=== PATIENT | female | born 1965 | race Caucasian/White ===

== ENCOUNTER 2020-05-25 06:00 | Outpatient (RCR) | payer MEDICARE, MEDICAID, SELFPAY | END 2020-06-11 23:59 | disposition home or self-care (01) | LOC: MPT 06:00 | PROVIDERS: Referring Provider Nurse Practitioner Family; Visit Provider Nurse Practitioner Family | DX: M42.16 Adult osteochondrosis of spine, lumbar region (principal); M25.551 Pain in right hip | CPT/HCPCS: 97140; 97161; 97530 ==

== ENCOUNTER 2020-06-10 14:21 | Emergency (ER) | payer MEDICARE, MEDICAID, SELFPAY ==
--- NOTE | 2020-06-10 14:52 | XRR_ITS ---
PROCEDURE INFORMATION: Exam: XR Right Hip with Pelvis when Performed Exam date and time: 06/10/2020 2:53 PM Age: 55 years old Clinical indication: Hip pain; Right hip; Additional info: RT hip pain TECHNIQUE: Imaging protocol: XR Right hip with pelvis when performed. Views: 2 or 3 views. COMPARISON: No relevant prior studies available. FINDINGS: Bones/joints: Unremarkable. No acute fracture. Soft tissues: Unremarkable. XR/XR hip RT 2-3V wo/w pel* [id number] IMPRESSION: No acute findings.
[2020-06-10 15:08] VITALS: BP 165/88; PULSE 83; RESP 18; TEMP 36.6; O2SAT 98; BMI 44.2
[2020-06-10] MEDS: HYDROcodone-acetaminophen 5-325 mg Tablet 1 TAB PO (17:27)
[2020-06-10 17:43] VITALS: BP 145/68; PULSE 82; RESP 16; O2SAT 97
--- NOTE | 2020-06-11 15:48 | W.ED.EXTPRO ---
HPI - Extremity Problem General: Chief complaint: Extremity Problem,Nontraumatic Stated complaint: R HIP PAIN Time Seen by Provider: 06/10/20 16:18 Source: patient Mode of arrival: ambulatory Limitations: no limitations History of Present Illness: HPI Narrative: 55-year-old female patient presents to the emergency department with chronic rt hip/buttock pain, recently started gabapentin, initiated physical therapy due to hip pain. She denies fall or trauma. Has been seen on several occasions by her primary care provider in [place]. Recently moved to the area, does not have a primary care here in [place]. Her spouse is present with her and is able to assist with history of present illness. She has not had anything for pain including Tylenol or ibuprofen. She denies weakness of the right lower extremity. Denies bowel or bladder incontinence. She reports pain has not changed, she has not experienced injury or worsening symptoms. MD Complaint: extremity pain Onset (ago): month(s) (6) Pain Consistency: intermittent Location: right and lower extremity Quality: aching and dull Radiation: distal Relieving factors: rest Exacerbating factors: weight bearing and walking Associated symptoms: Reports no associated symptoms; Deny chest pain, fever(s) or rash Review of Systems General: Reports: 10 or more systems reviewed and unremarkable except in HPI and below Const: Denies: fever(s), chills or diaphoresis Eyes: Denies: blurry vision or eye redness ENMT: Denies: throat pain, dental pain or disequilibrium Card: Denies: chest pain, palpitations or irregular heart rhythm Resp: Denies: dyspnea, productive cough, non-productive cough or wheezing GI: Denies: abdominal pain, nausea or vomiting : Denies: difficulty voiding or dysuria Musc: Reports: extremity pain (Right buttock radiating to the right lower extremity); Denies: neck pain, back pain or joint swelling Skin/Breast: Denies: rash or pruritus Neuro: Denies: headache(s), weakness in extremities or behavioral changes Psych: Denies: anxiety, depression or irritability Yahir/Lymph: Denies: easy bruising Physical Exam Const: COMMON NORMALS: no acute distress, patient oriented x3, healthy appearing, alert and well nourished EXAM LIMITATIONS: no altered mental status and no physical limitations GENERAL APPEARANCE: cooperative, comfortable and well hydrated NUTRITIONAL APPEARANCE: obese ORIENTATION/CONSCIOUSNESS: Yes awake, Yes oriented to person, Yes oriented to place and Yes oriented to time HENMT: COMMON NORMALS: normocephalic, atraumatic, Normal external nose present and moist oral mucous membranes HEAD & SCALP: normal to inspection, normocephalic and atraumatic FACE & SINUS: normal facial exam and face symmetric NOSE: Normal external nose present MOUTH: Normal oral and palatal mucosa present, lip normal and tongue normal THROAT: posterior oropharynx normal Eye: COMMON NORMALS: Equal, round and reactive pupils present and EOMs intact bilaterally GENERAL EYE: appearance normal, both eyes and all related structures PUPIL: Yes Equal, round and reactive pupils present Neck/C-Spine: COMMON NORMALS: full ROM and no lymphadenopathy GENERAL: Yes normal visual inspection and Yes trachea midline CERVICAL SPINE: Yes cervical ROM normal, No pain with cervical ROM, No Cervical spine tenderness, No Paracervical muscle tenderness and No Paracervical spasm Lymph: LYMPHATIC: no lymphadenopathy noted Chest: COMMONS NORMALS: normal inspection of the chest Resp: COMMON NORMALS: normal respiratory effort, No retractions, No use of accessory muscles and clear to auscultation bilaterally EFFORT & INSPECTION: Yes able to speak in complete sentences and No audible wheezes AUSCULTATION: clear to auscultation bilaterally and no wheezes Cardio: COMMON NORMALS: regular rate, regular rhythm, S1 normal heart sound present, S2 normal heart sound present and Peripheral pulses 2+ throughout RATE: regular rate RHYTHM: regular rhythm HEART SOUNDS: S1 normal heart sound present and S2 normal heart sound present PERIPHERAL PULSES: Peripheral pulses 2+ throughout GI: COMMON NORMALS: Normal to inspection, nondistended, normoactive bowel sounds present, Soft to palpation and non-tender INSPECTION: Yes normal to inspection and Yes central obesity PALPATION: Yes Soft to palpation, No Firmness to palpation present (GI), No Tenderness to palpation present (GI) and No Rigid due to palpation : COMMON NORMALS: Yes no CVA tenderness BLADDER/KIDNEY EXAM: Yes no CVA tenderness Back/Pelvis: COMMON NORMALS: no CVA tenderness, thoracic and lumbar spine normal to inspection, no thoracic nor lumbar tenderness and thoraco-lumbar ROM normal LUMBAR SPINE/LOWER BACK: Yes normal to inspection, No paraspinal muscle tenderness, No paraspinal muscle spasm, No Lumbar scoliosis and Yes straight leg raise positive right PELVIS: Yes buttocks normal SACROILIAC JOINTS: Yes SI joint(s) abnormal SI joint details: tender to palpation (Right) SACRUM: no ecchymosis Extremity: COMMON NORMALS: normal to inspection, capillary refill normal, no clubbing, cyanosis or edema, no calf tenderness and no pedal edema GENERAL: Yes normal exam except as noted Neuro: COMMON NORMALS: patient oriented x3 and no focal motor deficits SENSORIUM/ORIENTATION: Yes alert, Yes oriented to person, Yes oriented to place and Yes oriented to time SPEECH: speech normal GAIT: Yes Normal gait present MOTOR EXAM: 5/5 motor strength present throughout DEEP TENDON REFLEXES: Right ankle reflex intensity grade: 2+ and Left ankle reflex intensity grade: 2+ Psych: COMMON NORMALS: mental status grossly normal, Normal thought process present, cooperative, normal affect, speech normal and activity/motor behavior normal ACTIVITY/MOTOR BEHAVIOR: Yes appropriate eye contact SPEECH: Yes normal speech THOUGHT PROCESS: Normal thought process present Skin: COMMON NORMALS: no rashes or lesions noted, no wounds, turgor normal, no petechiae and no mottling GENERAL SKIN EXAM: no rashes or lesions noted, elasticity normal and turgor normal Course Vital Signs: Vital signs: Vital Signs Temperature 97.8 F 06/10/20 15:08 Pulse Rate 82 06/10/20 17:43 Respiratory Rate 16 06/10/20 17:43 Blood Pressure 145/68 06/10/20 17:43 Pulse Oximetry 97 06/10/20 17:43 MDM - Extremity (Nontraumatic) Differential Diagnosis: Extremity Problem Differential Diagnosis: Likely superficial thrombophlebitis, lower extremity edema and deep vein thrombosis of lower extremity Discharge Plan Discharge Patient Disposition: Home Clinical Impression: Sciatic leg pain, Sciatica of right side Condition: Stable Prescriptions: New prednisone 20 mg tablet 20 mg PO DAILY Qty: 10 RF: 0 Lidoderm 5 % adhesive patch,medicated 1 patch topical BID PRN (Reason: back pain) Qty: 30 RF: 0 Discharge Orders: Discharge ED (Routine); Ordered 06/10/20 Ordered By: Tanja Kwon Discharge Diet: Usual diet Discharge Activity: Limit activity as instructed Patient Instructions: Sciatica (ED), Opioid Safety Activity Restrictions/Additional Instructions: apply warm moist heat/alternate with cool compresses to the affected area take prednisone with food as directed Take Tylenol, 2 tablets of 500 mg, three times daily as needed for pain patient financial services coordinator will be contacting you with a follow-up appointment at the primary care provider, please follow-up for sciatic pain as further testing may be warranted Continue with physical therapy as directed Return to emergency department for other concerning symptoms such as worsening pain, right lower leg weakness or other symptoms Coding Level of Care Code ED C[employer] Printer for Elliott Brizuela
--- NOTE | 2020-06-12 14:05 | DCPLANNER ---
data operations manager had message to speak with patient about getting established with a primary care physician. data operations manager called phone number [phone], unable to speak with patient at this time, a voicemail was left for patient to return case coordinator phone call.
--- NOTE | 2020-06-15 14:09 | DCPLANNER ---
Patients brother called case specialist back, stating that patient needed to be established with a primary care provider, and he would like patient to be seen at the clinic in [facility]. fast food manager called the [facility] clinic in [facility], a follow up appointment was scheduled for , June 22, 2020 at 10:[address] Charissa Reilly. fast food manager called patients brother at phone number [phone], unable to speak with Stefan, a voicemail was left for patient to return manager of case phone call.
--- NOTE | 2020-06-29 15:53 | DCPLANNER ---
Patient had follow up appointment scheduled with leatha esquivel for pcp - patient did attend appointment.
== END 2020-06-10 17:45 | disposition home or self-care (01) ==
PROVIDERS: Emergency Provider Nurse Practitioner Family
DX: M54.31 Sciatica, right side (principal)
CPT/HCPCS: 73502; 99282

== ENCOUNTER 2020-06-12 06:00 | Outpatient (RCR) | payer MEDICARE, MEDICAID, SELFPAY | END 2020-07-12 23:59 | disposition home or self-care (01) | LOC: MPT 06:00 | PROVIDERS: Referring Provider Nurse Practitioner Family; Visit Provider Nurse Practitioner Family | DX: M42.16 Adult osteochondrosis of spine, lumbar region (principal); M25.551 Pain in right hip | CPT/HCPCS: 97110; 97140 ==

== ENCOUNTER → 2020-06-22 11:39 | Outpatient (BNVA) | payer MEDICARE, MEDICAID, SELFPAY | PROVIDERS: PCP Family Medicine; Visit Provider Family Medicine | DX: E78.5 Hyperlipidemia, unspecified (principal); K21.9 Gastro-esophageal reflux disease without esophagitis; E87.6 Hypokalemia; F33.1 Major depressive disorder, recurrent, moderate; R73.03 Prediabetes; F32.9 Major depressive disorder, single episode, unspecified; M54.5 Low back pain; Z76.89 Persons encountering health services in other specified circumstances | CPT/HCPCS: 80053; 80061; 83036 ==

== ENCOUNTER 2020-07-13 06:00 | Outpatient (RCR) | payer MEDICARE, MEDICAID, SELFPAY | END 2020-08-11 23:59 | disposition home or self-care (01) | LOC: MPT 06:00 | PROVIDERS: PCP Family Medicine; Referring Provider Nurse Practitioner Family; Visit Provider Nurse Practitioner Family | DX: M42.16 Adult osteochondrosis of spine, lumbar region (principal); M25.551 Pain in right hip | CPT/HCPCS: 97110; 97116; 97140 ==

== ENCOUNTER → 2020-10-02 10:55 | Outpatient (BNVA) | payer MEDICARE, MEDICAID, SELFPAY | PROVIDERS: PCP Family Medicine; Visit Provider Family Medicine | DX: E87.6 Hypokalemia (principal); I10 Essential (primary) hypertension; E78.5 Hyperlipidemia, unspecified | CPT/HCPCS: 80048 ==

== ENCOUNTER 2020-10-06 12:31 | Outpatient (CLI) | payer MEDICARE, MEDICAID, SELFPAY ==
--- NOTE | 2020-10-06 12:36 | XR_ITS ---
WS: [id number] Lumbar spine, 3 views, 10/06/2020 Clinical Data: M54.5 - Low back pain Comparison: None. Findings: No compression fractures or subluxation is seen. There is degenerative disc narrowing at L4-L5 and L5 -S1. There is anterior osteoarthritic change at L3-L5. The transverse processes and SI joints are nor mal. There is a minimal dextroscoliosis. There are clips in the right upper quadrant from a cholecystectom y. XR/XR lumbar spine 2-3V* [id number] Impression: 1. Osteoarthritis of the vertebral bodies L3-L5. 2. Degenerative disc narrowing at L4-L5 and L5-S1.
== END 2020-10-06 12:32 | disposition home or self-care (01) ==
PROVIDERS: Visit Provider Family Medicine
DX: M54.5 Low back pain (principal); M47.816 Spondylosis without myelopathy or radiculopathy, lumbar region
CPT/HCPCS: 72100

== ENCOUNTER 2020-12-15 06:22 | Outpatient (CLI) | payer MEDICARE, MEDICAID, SELFPAY ==
--- NOTE | 2020-12-15 07:15 | MR_ITS ---
WS: [id number] MRI LUMBAR SPINE NONCONTRAST HISTORY: M54.5 - Low back pain COMPARISON: Radiographs 10/06/2020 TECHNIQUE: Sagittal and axial multisequence imaging is submitted. Mild thoracolumbar scoliosis. Straightening of the normal lumbar lordosis. Posterior alignment is normal. No marrow edema or fracture. Mild disc space narrowing and desiccation throughout but most significant at L4-5. Conus terminates normally at L1-2 disc level. L1-L2: Mild narrowing of the LEFT foramen without significant stenosis. Mild facet arthritis. L2-L3: Mild annular disc bulging with a RIGHT foraminal disc protrusion slightly contacts the exiting L2 nerve root. Moderate facet joint arthritis and ligamentum flavum hypertrophy encroaching into the thecal sac causing mild bilateral subarticular recess stenosis. L3-L4: Mild annular disc bulging with moderate to severe ligamentum flavum hypertrophy and facet arth ritis. Moderate central and bilateral foraminal stenosis. Mild deformity of the traversing L4 nerve r oot on the LEFT. Small amount of fluid in the facet joints bilaterally. L4-L5: Moderate annular disc bulging with moderate ligamentum flavum hypertrophy and facet arthritis. No disc protrusions appreciated. Moderate central and foraminal stenosis. Moderate to severe subarti cular recess stenosis. L5-S1: Diffuse annular disc bulging with moderate ligamentum flavum hypertrophy and facet arthritis. Disc and facet arthritis encroaching moderately upon the LEFT S1 nerve root. Moderate bilateral rich inal stenosis. Paravertebral soft tissues are normal. MR/MR lumbar spine wo con* [id number] IMPRESSION: 1. Moderate central and bilateral foraminal stenosis with moderate to severe b ilateral subarticular recess stenosis at L4-5. 2. Moderate bilateral foraminal stenosis at L5-S1 with more significant encro achment upon the LEFT S1 nerve root. 3. Mild central and bilateral subarticular recess stenosis at L2-3. RIGHT fora les disc protrusion with mild contact on the exiting L2 nerve root. 4. Moderate central and bilateral foraminal stenosis at L3-4. Slightly greater encroachment upon the LEFT traversing L4 nerve root.
== END 2020-12-15 06:23 | disposition home or self-care (01) ==
LOC: RADSHAW 06:29
PROVIDERS: PCP Family Medicine; Visit Provider Family Medicine
DX: M54.5 Low back pain (principal); M48.061 Spinal stenosis, lumbar region without neurogenic claudication; M48.07 Spinal stenosis, lumbosacral region
CPT/HCPCS: 72148

== ENCOUNTER → 2021-04-16 14:31 | Outpatient (BNVA) | payer MEDICARE, MEDICAID, SELFPAY | PROVIDERS: PCP Family Medicine; Visit Provider Nurse Practitioner Family | DX: R10.9 Unspecified abdominal pain (principal) | CPT/HCPCS: 74018 ==

== ENCOUNTER → 2021-05-05 11:31 | Outpatient (BNVA) | payer MEDICARE, MEDICAID, SELFPAY | PROVIDERS: PCP Family Medicine; Visit Provider Emergency Medicine | DX: Z20.822 Contact with and (suspected) exposure to COVID-19 (principal); R06.02 Shortness of breath; J45.909 Unspecified asthma, uncomplicated | CPT/HCPCS: 87635 ==

== ENCOUNTER 2021-05-12 12:39 | Emergency (ER) | payer MEDICARE, MEDICAID, SELFPAY ==
--- NOTE | 2021-05-12 12:48 | XRR_ITS ---
PROCEDURE INFORMATION: Exam: XR Chest Exam date and time: 05/12/2021 12:48 PM Age: 55 years old Clinical indication: Shortness of breath with difficulty breathing. TECHNIQUE: Imaging protocol: XR of the chest. Views: 1 view. COMPARISON: CR XR KUB [id number] 04/16/2021 2:44 PM FINDINGS: Lungs: No pulmonary consolidation. Faint nodular density in the left costophrenic angle measuring 0.8 cm. Pleural spaces: Possible small left pleural effusion. No pneumothorax. Heart/Mediastinum: The cardiac silhouette is unremarkable. No gross evidence of pneumomediastinum. Bones/joints: No gross fracture. XR/XR chest 1V portable [id number] IMPRESSION: 1. Small nodular density in the left costophrenic angle. Recommend CT chest to better characterize. 2. Possible small left pleural effusion.
[2021-05-12 13:14] VITALS: BP 119/77; PULSE 92; RESP 16; TEMP 36.5; O2SAT 97
--- NOTE | 2021-05-12 13:14 | ED_ITS ---
Documented by User: CHINO Knapp 05/13/21 07:02 HPI - SOB/Dyspnea General: Chief Complaint: Shortness of Breath/Dyspnea Stated Complaint: Diff Breathing Time Seen by Provider: 05/12/21 16:18 History of Present Illness: HPI Narrative: Patient had a cough last few days has had some shortness of breath. Is doing breathing treatments. Was seen at [facility]. Covid test was negative. Patient doesn't appear in acute distress. Patient is sleeping in the waiting room breathing normally I did wake her up and then she started breathing fast. Father says her mental status is at a 3 or 2-year-old. MD elicited complaint: cough Onset (ago): day(s) Associated symptoms: Reports nausea and vomiting; Deny abdominal pain, chest pain or fever(s) Review of Systems Const: Denies: fever(s), chills or body aches Eyes: Denies: eye discomfort ENMT: Denies: throat pain Card: Reports: dyspnea on exertion; Denies: chest pain Resp: Reports: non-productive cough; Denies: dyspnea GI: Reports: nausea and vomiting; Denies: abdominal pain Skin/Breast: Denies: rash Neuro: Denies: headache(s) Psych: Denies: depression or suicidal ideation PFS ED PFSH: Medical History Depression GERD (gastroesophageal reflux disease) Hyperlipidemia Hypokalemia Social History Smoking and tobacco status: never smoked Alcohol intake: never Female Reproductive History: Spontaneous abortions: No Physical Exam Narrative: EXAM NARRATIVE: Patient has been asleep in the waiting room and in the vertical flow without any distress no problems breathing. Father answer question for. Const: COMMON NORMALS: no acute distress, patient oriented x3 and alert HENMT: COMMON NORMALS: normocephalic HEAD & SCALP: normocephalic Eye: COMMON NORMALS: EOMs intact bilaterally Neck/C-Spine: COMMON NORMALS: no JVD Resp: COMMON NORMALS: normal respiratory effort and No use of accessory muscles Cardio: COMMON NORMALS: no JVD GI: INSPECTION: Yes normal to inspection Extremity: COMMON NORMALS: normal to inspection and full ROM Neuro: COMMON NORMALS: patient oriented x3 SENSORIUM/ORIENTATION: Yes alert Psych: COMMON NORMALS: mental status grossly normal Skin: COMMON NORMALS: no rashes or lesions noted GENERAL SKIN EXAM: no rashes or lesions noted Course Vital Signs: Vital signs: Vital Signs Temperature 97.7 F 05/12/21 13:14 Pulse Rate 71 05/12/21 17:04 Respiratory Rate 16 05/12/21 17:04 Blood Pressure 119/77 05/12/21 13:14 Pulse Oximetry 97 05/12/21 17:04 MDM - SOB/Dyspnea Medical Decision Making Patient presents here with cough. Patient is in no acute distress vital signs are stable. Chest x-ray showed small nodular density in the left costophrenic angle recommend CT chest. Patient has follow-up on may with Dr. Reilly and the father will discuss with her the getting a CAT scan done. Lab Data Labs/Radiology: Radiology Impressions Chest X-Ray 05/12/21 12:48 IMPRESSION: 1. Small nodular density in the left costophrenic angle. Recommend CT chest to better characterize. 2. Possible small left pleural effusion. Discharge Plan Discharge Patient Disposition: Home Clinical Impression: Bronchitis, Incidental pulmonary nodule Condition: Stable Prescriptions: New prednisone 20 mg tablet 20 mg PO DAILY Qty: 7 0RF Discontinued doxycycline hyclate 100 mg tablet 100 mg PO BID 10 Days Qty: 20 0RF dexamethasone 2 mg tablet 6 mg PO DAILY 5 Days Qty: 15 0RF Rx Instructions: start this medicine on Friday No Action atorvastatin 40 mg tablet 40 mg PO DAILY 90 Days Qty: 90 0RF duloxetine 60 mg capsule,delayed release(DR/EC) 60 mg PO DAILY 90 Days Qty: 90 0RF famotidine 20 mg tablet 20 mg PO DAILY 90 Days Qty: 90 0RF topiramate 100 mg tablet 100 mg PO DAILY 90 Days Qty: 90 0RF albuterol sulfate 2.5 mg /3 mL (0.083 %) solution for nebulization 2.5 mg inhalation Q6H Qty: 150 0RF albuterol sulfate 90 mcg/actuation HFA aerosol inhaler 2 puff inhalation Q6H PRN (Reason: shortness of breath or wheezing) Qty: 8.5 0RF Rx Instructions: for use while away from neb machine (DME) nebulizers [facility] See Rx Instructions .MEDSUPPLY Qty: 1 0RF Rx Instructions: As directed lisinopril 20 mg tablet See Rx Instructions .ROUTE .COMPLEX Qty: 90 0RF Dose Instruction: TAKE ONE TABLET BY MOUTH DAILY Rx Instructions: TAKE ONE TABLET BY MOUTH DAILY gabapentin 300 mg capsule See Rx Instructions .ROUTE .COMPLEX Qty: 210 2RF Dose Instruction: TAKE TWO CAPSULES BY MOUTH EVERY MORNING AND TAKE 3 CAPSULES BY MOUTH DAILY AT BEDTIME Rx Instructions: 2 AM, 2 PM, 3 at bedtime Discharge Orders: Discharge ED (Routine); Ordered 05/12/21 Ordered By: Jovon Razo Referrals: Charissa Reilly MD [Primary Care Provider] - Discharge Diet: Usual diet Discharge Activity: Resume usual activity Patient Instructions: Acute Bronchitis (ED) Activity Restrictions/Additional Instructions: Follow-up with medical provider as directed. Take medications as prescribed. Return to the ER or your medical provider if condition worsens. Please read and understand discharge instructions. If any questions ask please. Make sure you follow-up your primary care provider and get a CAT scan ordered in the next 2 to 3 weeks to follow-up on incidental pulmonary nodule. If no significant provement noted in breathing condition follow-up here or with your primary care provider. Continue breathing treatments. Coding Level of Care Code ED Gasoline Dragline Operator for Chg Fwd Exam Comprehensive Documented by User: Tiago Jiménez MD 05/13/21 18:57 HPI - SOB/Dyspnea General: Chief Complaint: Shortness of Breath/Dyspnea Stated Complaint: Diff Breathing Time Seen by Provider: 05/12/21 16:18 PFSH ED PFSH: Medical History Depression GERD (gastroesophageal reflux disease) Hyperlipidemia Hypokalemia Social History Smoking and tobacco status: never smoked Alcohol intake: never Course Vital Signs: Vital signs: Vital Signs Temperature 97.7 F 05/12/21 13:14 Pulse Rate 71 05/12/21 17:04 Respiratory Rate 16 05/12/21 17:04 Blood Pressure 119/77 05/12/21 13:14 Pulse Oximetry 97 05/12/21 17:04 MDM - SOB/Dyspnea Medical Decision Making Patient presents here with cough. Patient is in no acute distress vital signs are stable. Chest x-ray showed small nodular density in the left costophrenic angle recommend CT chest. Patient has follow-up on may with Dr. Reilly and the father will discuss with her the getting a CAT scan done. I have reviewed this documentation by Jovon Razo NP. Tiago Jiménez MD Emergency Medicine Lab Data Labs/Radiology: Radiology Impressions Chest X-Ray 05/12/21 12:48 IMPRESSION: 1. Small nodular density in the left costophrenic angle. Recommend CT chest to better characterize. 2. Possible small left pleural effusion. Discharge Plan Discharge Patient Disposition: Home Clinical Impression: Bronchitis, Incidental pulmonary nodule Condition: Stable Prescriptions: New prednisone 20 mg tablet 20 mg PO DAILY Qty: 7 0RF Discontinued doxycycline hyclate 100 mg tablet 100 mg PO BID 10 Days Qty: 20 0RF dexamethasone 2 mg tablet 6 mg PO DAILY 5 Days Qty: 15 0RF Rx Instructions: start this medicine on Friday No Action atorvastatin 40 mg tablet 40 mg PO DAILY 90 Days Qty: 90 0RF duloxetine 60 mg capsule,delayed release(DR/EC) 60 mg PO DAILY 90 Days Qty: 90 0RF famotidine 20 mg tablet 20 mg PO DAILY 90 Days Qty: 90 0RF topiramate 100 mg tablet 100 mg PO DAILY 90 Days Qty: 90 0RF albuterol sulfate 2.5 mg /3 mL (0.083 %) solution for nebulization 2.5 mg inhalation Q6H Qty: 150 0RF albuterol sulfate 90 mcg/actuation HFA aerosol inhaler 2 puff inhalation Q6H PRN (Reason: shortness of breath or wheezing) Qty: 8.5 0RF Rx Instructions: for use while away from neb machine (DME) nebulizers [facility] See Rx Instructions .MEDSUPPLY Qty: 1 0RF Rx Instructions: As directed lisinopril 20 mg tablet See Rx Instructions .ROUTE .COMPLEX Qty: 90 0RF Dose Instruction: TAKE ONE TABLET BY MOUTH DAILY Rx Instructions: TAKE ONE TABLET BY MOUTH DAILY gabapentin 300 mg capsule See Rx Instructions .ROUTE .COMPLEX Qty: 210 2RF Dose Instruction: TAKE TWO CAPSULES BY MOUTH EVERY MORNING AND TAKE 3 CAPSULES BY MOUTH DAILY AT BEDTIME Rx Instructions: 2 AM, 2 PM, 3 at bedtime Discharge Orders: Discharge ED (Routine); Ordered 05/12/21 Ordered By: Jovon Razo Referrals: Charissa Reilly MD [Primary Care Provider] - Discharge Diet: Usual diet Discharge Activity: Resume usual activity Patient Instructions: Acute Bronchitis (ED) Activity Restrictions/Additional Instructions: Follow-up with medical provider as directed. Take medications as prescribed. Return to the ER or your medical provider if condition worsens. Please read and understand discharge instructions. If any questions ask please. Make sure you follow-up your primary care provider and get a CAT scan ordered in the next 2 to 3 weeks to follow-up on incidental pulmonary nodule. If no significant provement noted in breathing condition follow-up here or with your primary care provider. Continue breathing treatments. Coding Level of Care Code ED Gasoline Dragline Operator for Elliott Fwissa Exam Comprehensive
[2021-05-12 17:04] VITALS: PULSE 71; RESP 16; O2SAT 97
== END 2021-05-12 17:05 | disposition home or self-care (01) ==
PROVIDERS: Emergency Provider Nurse Practitioner Family; PCP Family Medicine
DX: J40 Bronchitis, not specified as acute or chronic (principal); R91.1 Solitary pulmonary nodule; E78.5 Hyperlipidemia, unspecified
CPT/HCPCS: 71045; 99282

== ENCOUNTER 2021-05-16 13:05 | Emergency (ER) | payer MEDICARE, MEDICAID, SELFPAY ==
[2021-05-16 13:12] VITALS: BP 143/81; PULSE 62; RESP 18; TEMP 37.1; O2SAT 96; BMI 31.8
--- NOTE | 2021-05-16 13:15 | ED_ITS ---
HPI - General Adult General: Chief complaint: General Medical Stated complaint: SOB/ FEVER/ HURTS ALL OVER Time Seen by Provider: 05/16/21 13:11 History of Present Illness: Ms Bhat is a 55-year-old lady with significant past medical she of hypertension, hyperlipidemia, prediabetes who presents to the emergency department due to generalized body aches. She was previously evaluated on 05/12/2021 at which point she had a few days of cough and shortness of breath. She reports that this is about the same however has generalized body aches. Body aches are moderate in intensity. It is unclear if she is taking any other medications. She does endorse generalized abdominal discomfort as well. Overall the course of symptoms has persisted. No other specific exacerbating relieving factors identified. History is mildly limited as the patient has some degree of cognitive impairment. Onset (ago): week(s) Severity: moderate Quality: aching Pain Consistency: constant Relieving factors: none Exacerbating factors: movement Associated symptoms: Reports cough and short of breath Review of Systems General: Reports: 10 or more systems reviewed and unremarkable except in HPI and below PFSH ED PFSH: Medical History Depression GERD (gastroesophageal reflux disease) Hyperlipidemia Hypokalemia Surgical History H/O exploratory laparotomy Social History Smoking and tobacco status: never smoked Alcohol intake: never Female Reproductive History: Spontaneous abortions: No Physical Exam Const: COMMON NORMALS: alert GENERAL APPEARANCE: cooperative and well developed HENMT: COMMON NORMALS: normocephalic, atraumatic, external ears normal and Normal external nose present HEAD & SCALP: normocephalic and atraumatic NOSE: Normal external nose present EXTERNAL EAR: Yes external ears normal Eye: COMMON NORMALS: conjunctivae normal CONJUNCTIVA: Yes conjunctivae normal SCLERA: sclerae normal Neck/C-Spine: COMMON NORMALS: supple GENERAL: Yes trachea midline Resp: COMMON NORMALS: normal respiratory effort and clear to auscultation bilaterally EFFORT & INSPECTION: Yes able to speak in complete sentences AUSCULTATION: clear to auscultation bilaterally Cardio: COMMON NORMALS: regular rate and regular rhythm RATE: regular rate RHYTHM: regular rhythm GI: COMMON NORMALS: Soft to palpation PALPATION: Yes Soft to palpation, Yes Tenderness to palpation present (GI) (generalized), No Guarding due to palpation present (GI) and No Rigid due to palpation PERCUSSION: normal to percussion Extremity: GENERAL: Yes normal exam except as noted and No edema Neuro: COMMON NORMALS: moves all extremities SENSORIUM/ORIENTATION: Yes alert and No Orientation impaired Psych: COMMON NORMALS: mental status grossly normal and Normal thought process present THOUGHT PROCESS: Normal thought process present Course ED course: - Patient was seen and evaluated by me at bedside - Patient placed on cardiac monitors, IV access obtained - Initial evaluation notable for exam as above. Patient does have fairly significant abdominal tenderness to palpation -Symptom treatments ordered - Labs notable for minimal leukocytosis. Metabolic panel with mild evidence of likely dehydration. Covid is positive. - Imaging notable for right lower lung finding consistent with early acute pneumonitis. Metabolic panel without acute abnormality to explain patient's abdominal symptoms. - Upon serial reexamination after treatment the patient was mildly improved - Based on patient history, evaluation, labs, and imaging as interpreted the most likely cause of the patient's condition is COVID-19 - The results of ED evaluation were discussed with the patient including prescriptions and/or symptomatic cares (if applicable) including appropriate and responsible use, followup plan, and return precautions. The patient verbalized understanding and felt safe for discharge. - Patient discharged in satisfactory condition. Note: Click bubbles or prepopulated so in note writing are used for assistance with data collection and billing and are inherently more limited than narrative and other text portions of this note. Please use narrative for additional clinical history and defer to narrative/free test for any case of contradictory information. If information appears in only free text or click bubble it should be considered present or absent as reported. Please contact note communications writer for clarifications of clinical information or contradictory information. MDM is a brief summary, contradictory or erroneous seeming information should be clarified and full note should be reviewed. Vital Signs: Vital signs: Vital Signs Temperature 98.7 F 05/16/21 13:12 Pulse Rate 70 05/16/21 17:51 Respiratory Rate 18 05/16/21 14:10 Blood Pressure 138/77 05/16/21 14:10 Pulse Oximetry 95 05/16/21 17:51 MDM - General Adult Medical Decision Making 55-year-old lady presenting with shortness of breath cough and generalized body aches. Previously evaluated and tested negative for Covid however tested positive at this ED encounter which likely explains all of patient's symptoms. Patient satisfactory for continued outpatient symptom treatment/care. Medical Records I reviewed the patient's medical records. Lab Data I reviewed the patient's lab results. : 05/16/21 14:00 05/16/21 14:00 Radiology Impressions Chest X-Ray 05/16/21 13:17 IMPRESSION: Abnormality in the right lower lung which could be indicative of early acute pneumonitis. (We should see this area on the scheduled CT scan of the abdomen and pelvis.) Abdomen/Pelvis CT 05/16/21 14:07 IMPRESSION: 1. Mild hepatomegaly. Prior cholecystectomy. 2. No hydronephrosis in either kidney. 3. Small fat-containing supra umbilical hernia. No herniated bowel. 4. Normal caliber abdominal aorta. 5. No acute findings in the abdomen or pelvis. Laboratory Results WBC 10.6 10^3/uL (4.0-10.0) H 05/16/21 14:00 RBC 4.37 10^6/uL (4.1-5.3) 05/16/21 14:00 Hgb 13.1 g/dL (11.5-15.3) 05/16/21 14:00 Hct 39.9 % (37.0-47.0) 05/16/21 14:00 MCV 91.3 fl (81-99) 05/16/21 14:00 MCH 30.0 pg (28.0-34.0) 05/16/21 14:00 MCHC 32.8 g/dL (30.0-36.0) 05/16/21 14:00 RDW 14.1 % (12.1-15.1) 05/16/21 14:00 Plt Count 288 10^3/cmm (130-400) 05/16/21 14:00 MPV 11.7 fL (7.4-10.4) H 05/16/21 14:00 Neut % (Auto) 85.4 % 05/16/21 14:00 Lymph % (Auto) 11.0 % 05/16/21 14:00 [place] % (Auto) 2.7 % 05/16/21 14:00 Eos % (Auto) 0.0 % 05/16/21 14:00 Baso % (Auto) 0.3 % 05/16/21 14:00 Neut # (Auto) 9.08 10^3/uL (1.8-7.7) H 05/16/21 14:00 Lymph # (Auto) 1.2 10^3/uL (0.8-4.8) 05/16/21 14:00 [place] # (Auto) 0.3 10^3/uL (0.2-0.9) 05/16/21 14:00 Eos # (Auto) 0.0 10^3/uL (0.0-0.8) 05/16/21 14:00 Baso # (Auto) 0.0 10^3/uL (0.0-0.1) 05/16/21 14:00 Nucleated RBC % (auto) 0 % 05/16/21 14:00 Nucleated RBCs # 0.0 /100WBC 05/16/21 14:00 Sodium 141 mmol/L (136-145) 05/16/21 14:00 Potassium 3.6 mmol/L (3.5-5.1) 05/16/21 14:00 Chloride 104 mmol/L (98-107) 05/16/21 14:00 Carbon Dioxide 23 mmol/L (22-29) 05/16/21 14:00 Anion Gap 17.6 (5-19) 05/16/21 14:00 BUN 21 mg/dL (6-20) H 05/16/21 14:00 Creatinine 0.8 mg/dL (0.5-0.9) 05/16/21 14:00 GFR Calculation 73.9 mL/min (90-130) L 05/16/21 14:00 Glucose 118 mg/dL (65-115) H 05/16/21 14:00 Calculated Osmolality 296 mOsm/kg (285-295) H 05/16/21 14:00 Calcium 8.5 mg/dL (8.5-10.5) 05/16/21 14:00 Total Bilirubin 0.4 mg/dL (0.15-1.2) 05/16/21 14:00 AST 9 U/L (0-32) 05/16/21 14:00 ALT 7 U/L (0-33) 05/16/21 14:00 Alkaline Phosphatase 122 IU/L (35-105) H 05/16/21 14:00 NT-Pro-B Natriuret Pep 401 pg/mL (0-125) H 05/16/21 14:00 Total Protein 6.5 g/dL (6.6-8.7) L 05/16/21 14:00 Albumin 3.9 g/dL (3.5-5.2) 05/16/21 14:00 Globulin 2.6 g/dL (1.3-4.6) 05/16/21 14:00 Procalcitonin 0.09 ng/mL (0-0.5) 05/16/21 14:00 Urine Color Dark yellow (Yellow) 05/16/21 14:33 Urine Appearance Clear (CLEAR) 05/16/21 14:33 Urine pH 5 (5-7) 05/16/21 14:33 Ur Specific [place] 1.025 (1.005-1.030) 05/16/21 14:33 Urine Protein Neg (Negative) 05/16/21 14:33 Urine Glucose (UA) Norm (Normal) 05/16/21 14:33 Urine Ketones Negative (Negative) 05/16/21 14:33 Urine Blood Neg (Negative) 05/16/21 14:33 Urine Nitrate Negative (Negative) 05/16/21 14:33 Urine Bilirubin Neg (Negative) 05/16/21 14:33 Urine Urobilinogen Neg mg/dL (Negative) 05/16/21 14:33 Ur Leukocyte Esterase Negative (Negative) 05/16/21 14:33 Influenza Type A Ag Negative (Negative) 05/16/21 13:27 Influenza Type B Ag Negative (Negative) 05/16/21 13:27 SARS-CoV-2 Ag (Rapid) Positive (Negative) H 05/16/21 13:27 EKG Data EKG 1: Interpretation: Twelve-lead EKG shows a 63 rhythm at a rate of 63.. CA interval 90. QRS duration 122. QTc 452. Normal [place]. Interpretation: Sinus rhythm. Short CA interval. Computer generated interpretation: Chest X-Ray 05/16/21 13:17 IMPRESSION: Abnormality in the right lower lung which could be indicative of early acute pneumonitis. (We should see this area on the scheduled CT scan of the abdomen and pelvis.) Abdomen/Pelvis CT 05/16/21 14:07 IMPRESSION: 1. Mild hepatomegaly. Prior cholecystectomy. 2. No hydronephrosis in either kidney. 3. Small fat-containing supra umbilical hernia. No herniated bowel. 4. Normal caliber abdominal aorta. 5. No acute findings in the abdomen or pelvis. Discharge Plan Discharge Patient Disposition: Home Condition: Stable Prescriptions: No Action atorvastatin 40 mg tablet 40 mg PO DAILY 90 Days Qty: 90 0RF duloxetine 60 mg capsule,delayed release(DR/EC) 60 mg PO DAILY 90 Days Qty: 90 0RF famotidine 20 mg tablet 20 mg PO DAILY 90 Days Qty: 90 0RF topiramate 100 mg tablet 100 mg PO DAILY 90 Days Qty: 90 0RF albuterol sulfate 2.5 mg /3 mL (0.083 %) solution for nebulization 2.5 mg inhalation Q6H Qty: 150 0RF albuterol sulfate 90 mcg/actuation HFA aerosol inhaler 2 puff inhalation Q6H PRN (Reason: shortness of breath or wheezing) Qty: 8.5 0RF Rx Instructions: for use while away from [employer] machine (DME) nebulizers [facility] See Rx Instructions .MEDSUPPLY Qty: 1 0RF Rx Instructions: As directed lisinopril 20 mg tablet See Rx Instructions .ROUTE .COMPLEX Qty: 90 0RF Dose Instruction: TAKE ONE TABLET BY MOUTH DAILY Rx Instructions: TAKE ONE TABLET BY MOUTH DAILY gabapentin 300 mg capsule See Rx Instructions .ROUTE .COMPLEX Qty: 210 2RF Dose Instruction: TAKE TWO CAPSULES BY MOUTH EVERY MORNING AND TAKE 3 CAPSULES BY MOUTH DAILY AT BEDTIME Rx Instructions: 2 AM, 2 PM, 3 at bedtime prednisone 20 mg tablet 20 mg PO DAILY Qty: 7 0RF Discharge Orders: Discharge ED (Routine); Ordered 05/16/21 Ordered By: Tiago Jiménez Referrals: Charissa Reilly MD [Primary Care Provider] - Discharge Diet: Usual diet Discharge Activity: Resume usual activity Patient Instructions: COVID-19 (Coronavirus Disease 2019) (ED) Activity Restrictions/Additional Instructions: Thank you for visiting the emergency department. You were seen and evaluated for generalized aches and other concerns. You are found to have COVID-19 which I believe reasonably explains all of your symptoms. The treatment is primarily symptomatic. You may use [id number] medications however please do not exceed daily recommended dosages. Please return to the emergency department for worsening symptoms, oxygen saturation less than 90% at rest, or anything else that you are concerned about and feel needs emergency department evaluation. Coding Level of Care Code ED Department Editor for Elliott Fwd Exam Comprehensive
--- NOTE | 2021-05-16 13:17 | XR_ITS ---
WS: [id number] XR chest 1V portable [id number] REASON FOR EXAM: shortness of breath FINDINGS: Compared to the previous examination of 05/12/2021, no nodule is identified in the left costophrenic a ngle. There is minimal blunting of the left costophrenic angle. There is faint opacity in the medial lower right lung adjacent to the right heart on the previous exa mination. This is again noted on the current examination. It may be somewhat more prominent. No other interval change compared to the previous study. XR/XR chest 1V portable [id number] IMPRESSION: Abnormality in the right lower lung which could be indicative of early acute pn eumonitis. (We should see this area on the scheduled CT scan of the abdomen and pelvis.)
--- NOTE | 2021-05-16 13:20 | ECG_ITS ---
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 Measurements Intervals [place] Rate: 63 P: -86 NH: 90 QRS: 17 QRSD: 122 T: 50 QT: 444 QTc: 458 Interpretive Statements JUNCTIONAL RHYTHM POSSIBLE LATERAL MYOCARDIAL INFARCTION , PROBABLY OLD [30 ms Q WAVE IN I/aVL/V5/V6] ABNORMAL RHYTHM ECG No previous ECG available for comparison Electronically Signed On 05-16-2021 18:33:01 SPOOL SANDER by Augustin Coto M.D. [id number] f
[2021-05-16 13:29] VITALS: BP 143/81; PULSE 63; RESP 16; O2SAT 96
[2021-05-16 14:07] LABS: Basophils % 0.3 %; Hematocrit 39.9 % (37.0-47.0); Hemoglobin 13.1 g/dL (11.5-15.3); Lymphocytes # 1.2 10^3/uL (0.8-4.8); Mean Corpuscular HGB Conc 32.8 g/dL (30.0-36.0); Mean Corpuscular Volume 91.3 fl (81-99); Mean Platelet Volume 11.7 fL (7.4-10.4); Monocytes # 0.3 10^3/uL (0.2-0.9); Monocytes % 2.7 %; Neutrophils # 9.08 10^3/uL (1.8-7.7); Neutrophils % 85.4 %; Nucleated Red Blood Cells % 0 %; Platelet Count 288 10^3/cmm (130-400); Red Blood Count 4.37 10^6/uL (4.1-5.3); Red Cell Distribution Width 14.1 % (12.1-15.1); White Blood Count 10.6 10^3/uL (4.0-10.0)
--- NOTE | 2021-05-16 14:07 | CT_ITS ---
WS: [id number] CT ABDOMEN PELVIS TECHNIQUE: Contrast-enhanced CT of the abdomen and pelvis with coronal and sagittal reformatted image s. CLINICAL INFORMATION: abdominal pain COMPARISON: CT 3 28 DLP: 2014.[address] scans at [facility] use at least one of these dose optimization techniques: automated e xposure control; mA and/or kV adjustment per patient size (includes targeted exams where dose is matc hed to clinical indication); or iterative reconstruction. FINDINGS: Mild hepatomegaly. Prior cholecystectomy. Normal portal vein and splenic vein. Normal spleen. Fatty a trophy of the pancreas. Adrenal glands are normal. Bilateral renal cortical atrophy. No hydronephrosi s. Normal GE junction. Lung bases are well aerated. Normal caliber abdominal aorta. Celiac and SMA ar e patent. Normal sigmoid colon. No evidence of high-grade small or large bowel obstruction. Fat-containing supr aumbilical hernia. No herniated bowel. No free fluid in the abdomen or pelvis. Bladder is decompressed. Disc space narrowing worse L4-5. Starr ggestion of slightly dilated left proximal fallopian tube appears unchanged since 2011. No other sign ificant findings. CT/CT abdomen pelvis w con* [id number] IMPRESSION: 1. Mild hepatomegaly. Prior cholecystectomy. 2. No hydronephrosis in either kidney. 3. Small fat-containing supra umbilical hernia. No herniated bowel. 4. Normal caliber abdominal aorta. 5. No acute findings in the abdomen or pelvis.
[2021-05-16 14:10] VITALS: BP 138/77; PULSE 68; RESP 18; O2SAT 96
[2021-05-16 14:13] LABS: Influenza A by IFA Negative (Negative); Influenza B by IFA Negative (Negative); SARS Covid-2 Antigen Positive (Negative)
[2021-05-16 14:40] LABS: Add Urine Microscopic? NO; Charge for UA Resulting for Rev
[2021-05-16 14:43] LABS: Bilirubin Urine Neg (Negative); Blood Urine Neg (Negative); Glucose Urine UA Norm (Normal); Ketones Urine Negative (Negative); Leukocyte Esterase Urine Negative (Negative); Nitrate Urine Negative (Negative); Protein Urine Neg (Negative); Specific Gravity, Urine 1.025 (1.005-1.030); Urine Appearance Clear (CLEAR); Urine Color Dark Yellow (Yellow); Urobilinogen Urine Neg (Negative); pH Urine 5 (5-7)
[2021-05-16 14:45] LABS: NT Pro B Type Natriuretic Pept 401 pg/mL (0-125); Procalcitonin 0.09 ng/mL (0-0.5)
[2021-05-16 14:56] LABS: Alanine Aminotransferase 7 U/L (0-33); Albumin Level 3.9 g/dL (3.5-5.2); Alkaline Phosphatase 122 IU/L (35-105); Aspartate Amino Transferase 9 U/L (0-32); Blood Urea Nitrogen 21 mg/dL (6-20); Calcium 8.5 mg/dL (8.5-10.5); Carbon Dioxide 23 mmol/L (22-29); Chloride 104 mmol/L (98-107); Globulin 2.6 g/dL (1.3-4.6); Glomerular Filtration Rate 73.9 mL/min (90-130); Glucose 118 mg/dL (65-115); Osmolality Calculated 296 mOsm/kg (285-295); Sodium 141 mmol/L (136-145); Total Bilirubin 0.4 mg/dL (0.15-1.2); Total Protein 6.5 g/dL (6.6-8.7)
[2021-05-16 14:59] LABS: Anion Gap 17.6 (5-19); Potassium 3.6 mmol/L (3.5-5.1)
[2021-05-16] MEDS: iohexol 300 mg/mL 100 mL Btl IV (15:19)
[2021-05-16] MEDS: sodium chloride 0.9% 500 ML 999 ML IV (15:20)
[2021-05-16] MEDS: ketorolac 30 mg/mL INJ 15 MG IVP (16:19)
[2021-05-16 17:51] VITALS: PULSE 70; O2SAT 95
== END 2021-05-16 17:52 | disposition home or self-care (01) ==
PROVIDERS: Emergency Provider Emergency Medicine; PCP Family Medicine
DX: U07.1 COVID-19 (principal); R52 Pain, unspecified; E78.5 Hyperlipidemia, unspecified
CPT/HCPCS: 71045; 74177; 80053; 81003; 83880; 84145; 85025; 87426; 87804; 93005; 96374; 99283; J1885; J7040; Q9967

== ENCOUNTER 2021-06-12 08:35 | Outpatient (CLI) | payer MEDICARE, MEDICAID, SELFPAY ==
--- NOTE | 2021-06-12 10:15 | XR_ITS ---
WS: [id number] PROCEDURE: XR chest 2V* [id number] CLINICAL INFORMATION: R06.02 - Shortness of breath COMPARISON: May 16, 2021 FINDINGS: Heart: Mild cardiomegaly. Lungs: No acute pulmonary infiltrates. No focal pneumonia. Stable slight pleural thickening LEFT costophrenic angle. Bones: Postoperative changes plate and screw fixation lower cervical spine. Hypertrophic changes thor acic spine. Cholecystectomy clips. XR/XR chest 2V* [id number] IMPRESSION: 1. Stable mild cardiomegaly. 2. Stable mild bronchiectasis RIGHT lower lobe unchanged. 3. No acute pulmonary infiltrates. 4. Slight pleural thickening LEFT costophrenic angle unchanged. 5. No other significant findings.
== END 2021-06-12 08:36 | disposition home or self-care (01) ==
LOC: RAD 08:45
PROVIDERS: PCP Family Medicine; Visit Provider Emergency Medicine
DX: R06.02 Shortness of breath (principal); J45.909 Unspecified asthma, uncomplicated; I51.7 Cardiomegaly; J47.9 Bronchiectasis, uncomplicated
CPT/HCPCS: 71046

== ENCOUNTER → 2021-11-21 09:42 | Outpatient (BNVA) | payer MEDICARE, MEDICAID, SELFPAY | PROVIDERS: PCP Family Medicine; Visit Provider Family Medicine | DX: I10 Essential (primary) hypertension (principal); E11.9 Type 2 diabetes mellitus without complications; E78.5 Hyperlipidemia, unspecified | CPT/HCPCS: 80048; 80061; 83036 ==

== ENCOUNTER → 2022-06-13 09:36 | Outpatient (BNVA) | payer MEDICARE, MEDICAID, SELFPAY | PROVIDERS: PCP Family Medicine; Visit Provider Family Medicine | DX: I10 Essential (primary) hypertension (principal); R73.03 Prediabetes | CPT/HCPCS: 80053; 83036 ==

== ENCOUNTER → 2022-10-10 10:12 | Outpatient (BNVA) | payer MEDICARE, MEDICAID, SELFPAY | PROVIDERS: PCP Family Medicine; Visit Provider Emergency Medicine | DX: G89.4 Chronic pain syndrome (principal); R73.03 Prediabetes; J20.8 Acute bronchitis due to other specified organisms; B96.89 Other specified bacterial agents as the cause of diseases classified elsewhere | CPT/HCPCS: 81000; 87086 ==

== ENCOUNTER → 2023-01-06 12:49 | Outpatient (BNVA) | payer MEDICARE, MEDICAID, SELFPAY | PROVIDERS: PCP Family Medicine; Visit Provider Family Medicine | DX: M25.551 Pain in right hip; M41.9 Scoliosis, unspecified; M47.817 Spondylosis without myelopathy or radiculopathy, lumbosacral region | CPT/HCPCS: 72100; 73523 ==

== ENCOUNTER → 2023-02-06 12:33 | Outpatient (BNVA) | payer MEDICARE, MEDICAID, SELFPAY | PROVIDERS: PCP Family Medicine; Visit Provider Nurse Practitioner Family | DX: R10.11 Right upper quadrant pain (principal) | CPT/HCPCS: 80053; 82150; 83690; 85007; 85027 ==

== ENCOUNTER 2023-03-14 10:26 | Emergency (ER) | payer MEDICARE, MEDICAID, SELFPAY ==
[2023-03-14 10:27] VITALS: BP 97/52; PULSE 86; RESP 18; TEMP 36.6; O2SAT 96; BMI 38.2
--- NOTE | 2023-03-14 10:32 | ECG_ITS ---
[facility] Test Date: 2023-03-14 Pat Name: Aleksandr Bhat Department: Room: Gender: Female Naturalist: : 1965 Requested By: Cirilo Katz Order Number: [id number] Adina MD: Rosa Maria Collazo M.D. Measurements Intervals [place] Rate: 87 P: -88 SC: 88 QRS: -24 QRSD: 104 T: 21 QT: 417 QTc: 502 Interpretive Statements JUNCTIONAL RHYTHM WITH FREQUENT SUPRAVENTRICULAR PREMATURE COMPLEXES IN A BIGEMINAL PATTERN BORDERLINE LEFT AXIS DEVIATION [QRS AXIS < -20] ABNORMAL RHYTHM ECG Compared to ECG 05/16/2021 14:15:19 Myocardial infarct finding no longer present Electronically Signed On 03-15-2023 6:05:07 FIRER BOILER by Rosa Maria Collazo M.D. [id number]
--- NOTE | 2023-03-14 10:41 | ED_ITS ---
HPI - Syncope 2 General: Chief Complaint: Syncope Stated Complaint: dizziness post suture removal Time Seen by Provider: 03/14/23 10:30 Source: patient Mode of arrival: ambulatory History of Present Illness: 57-year-old female presents to the emerg ency room after syncopal episode. She was having sutures removed from the right occipital region and evidently had a vasovagal and passed out. Initial blood pressure when EMS arrived was 69/42 and has improved since then is 97 or 52 she is receiving fluids. She denies chest or abdominal pain or shortness of breath. She is not on any anticoagulants. MD complaint: almost passed out Onset (ago): minute(s) Witnessed: Yes - by Bystander Context: other Injuries sustained associated with event: none Associated symptoms: Deny abdominal pain, chest pain, fever(s), headache(s), lightheadedness, nausea, short of breath, vertigo or weakness Review of Systems 2 Const: Denies: fever(s) Card: Denies: chest pain or lightheadedness Resp: Denies: dyspnea GI: Denies: abdominal pain or nausea : Denies: dysuria, urinary frequency or urinary urgency Musc: Denies: neck pain or back pain Skin/Breast: Denies: rash Neuro: Denies: headache(s) or vertigo PFSH ED 2 PFSH: Medical History Syncopal episodes Psychiatric care Depression Hypokalemia GERD (gastroesophageal reflux disease) Hyperlipidemia Surgical History H/O exploratory laparotomy Social History Smoking and tobacco/nicotine status: never used tobacco/nicotine Alcohol intake: never Substance/Drug Use: never Female Reproductive History: Spontaneous abortions: No Physical Exam 2 Const: GENERAL APPEARANCE: cooperative and comfortable O RIENTATION/CONSCIOUSNESS: Yes awake, Yes oriented to person, Yes oriented to place and Yes oriented to time HENMT: COMMON NORMALS: normocephalic, atraumatic and hearing grossly normal bilaterally HEAD & SCALP: normocephalic and atraumatic Resp: COMMON NORMALS: normal respiratory effort, No retractions, No use of accessory muscles and clear to auscultation bilaterally AUSCULTATION: clear to auscultation bilaterally Cardio: COMMON NORMALS: regular rate, regular rhythm and No murmurs present (Cardio) RATE: regular rate RHYTHM: regular rhythm GI: COMMON NORMALS: Soft to palpation and No hepatosplenomegaly present A USCULTATION: Yes normoactive bowel sounds PALPATION: Yes Soft to palpation, No Tenderness to palpation present (GI), No Guarding due to palpation present (GI) and Yes No hepatosplenomegaly present Extremity: COMMON NORMALS: normal to inspection, capillary refill normal, no clubbing, cyanosis or edema, no calf tenderness and no pedal edema Neuro: SENSORIUM/ORIENTATION: Yes oriented to person, Yes oriented to place and Yes oriented to time Skin: COMMON NORMALS: no rashes or lesions noted GENERAL SKIN EXAM: no rashes or lesions noted Course 2 Vital Signs: Vital signs: Vital Signs Temperature 97.8 F 03/14/23 10:27 Pulse Rate 71 03/14/23 12:20 Respiratory Rate 18 03/14/23 12:10 Blood Pressure 93/67 03/14/23 13:00 Pulse Oximetry 96 03/14/23 13:00 Oxygen Delivery Me thod Room Air 03/14/23 12:10 MDM - Syncope Medical Decision Making Labs and imaging reviewed symptoms have completely resolved she nearly passed out in anticipation having her sutures removed. We did remove fransisco here without difficulties a little bit of dehiscence in the central part of the wound no active bleeding or drainage. Patient is wanting to go home no indication to hospitalize at this time follow-up with primary care Medical Records I reviewed the patient's medical records. Lab Data I reviewed the patient's lab results. 03/14/23 10:47 03/14/23 10:47 Laboratory Results WBC 11.79 10^3/uL (3.29-11.43) H 03/14/23 10:47 RBC 4.79 10^6/uL (3.85-5.65) 03/14/23 10:47 Hgb 14.50 g/dL (11.27-16.99) 03/14/23 10:47 Hct 43.1 % (36-47) 03/14/23 10:47 MCV 90.0 fl (85-98) 03/14/23 10:47 MCH 30.3 pg (27-33) 03/14/23 10:47 MCHC 33.6 g/dL (30-55) 03/14/23 10:47 RDW 13.6 % (12.1-15.1) 03/14/23 10:47 Plt Count 312 10^3/cmm (157-399) 03/14/23 10:47 MPV 11.6 fL (7.4-10.4) H 03/14/23 10:47 Neut % (Auto) 72.2 % 03/14/23 10:47 Lymph % (Auto) 17.4 % 03/14/23 10:47 [place] % (Auto) 7.0 % 03/14/23 10:47 Eos % (Auto) 2.0 % 03/14/23 10:47 Baso % (Auto) 0.8 % 03/14/23 10:47 Neut # (Auto) 8.51 10^3/uL (1.8-7.7) H 03/14/23 10:47 Lymph # (Auto) 2.1 10^3/uL (0.8-4.8) 03/14/23 10:47 [place] # (Auto) 0.8 10^3/uL (0.2-0.9) 03/14/23 10:47 Eos # (Auto) 0.2 10^3/uL (0.0-0.8) 03/14/23 10:47 Baso # (Auto) 0.1 10^3/uL (0.0-0.1) 03/14/23 10:47 Nucleated RBC % (auto) 0 % 03/14/23 10:47 Nucleated RBCs # 0.0 /100WBC 03/14/23 10:47 Sodium 135 mmol/L (136-145) L 03/14/23 10:47 Potassium 4.1 mmol/L (3.5-5.1) 03/14/23 10:47 Chloride 101 mmol/L (98-107) 03/14/23 10:47 Carbon Dioxide 20 mmol/L (22-29) L 03/14/23 10:47 Anion Gap 18.1 (5-19) 03/14/23 10:47 BUN 19 mg/dL (6-20) 03/14/23 10:47 Creatinine 1.2 mg/dL (0.5-0.9) H 03/14/23 10:47 GFR Calculation 46.0 mL/min (90-130) L 03/14/23 10:47 Glucose 82 mg/dL (65-115) 03/14/23 10:47 Calculated Osmolality 281 mOsm/kg (285-295) L 03/14/23 10:47 Calcium 9.0 mg/dL (8.5-10.5) 03/14/23 10:47 Total Bilirubin 0.7 mg/dL (0.15-1.2) 03/14/23 10:47 AST 31 U/L (0-32) 03/14/23 10:47 ALT 42 U/L (0-33) H 03/14/23 10:47 Alkaline Phosphatase 175 U/L (35-105) H 03/14/23 10:47 Total Protein 7.2 g/dL (6.6-8.7) 03/14/23 10:47 Albumin 3.4 g/dL (3.5-5.2) L 03/14/23 10:47 Globulin 3.8 g/dL (1.3-4.6) 03/14/23 10:47 All radiology interpretation(s) finalized by discharge Discharge Plan Discharge Patient Disposition: Home Clinical Impression: Vasovagal syncope Condition: Stable Prescriptions: No Action albuterol sulfate 90 mcg/actuation HFA aerosol inhaler 2 puff inhalation Q6H PRN (Reason: shortness of breath or wheezing) Qty: 8.5 0RF Rx Instructions: for use while away from neb machine ([facility]) nebulizers [facility] See Rx Instructions .MEDSUPPLY Qty: 1 0RF Rx Instructions: As directed ([facility]) [facility] See Rx Instructions .Route Qty: 1 0RF Rx Instructions: As directed, wrist splint for carpal tunnel, R hydralazine 10 mg tablet 10 mg PO TID PRN (Reason: hypertension) 30 Days Qty: 90 0RF Rx Instructions: BP >160/110 Tylenol 8 Hour 650 mg Tablet Extended Release 650 mg PO BID atorvastatin 40 mg tablet 40 mg PO QAM albuterol sulfate 2.5 mg /3 mL (0.083 %) solution for nebulization 2.5 mg inhalation Q6H PRN (Reason: Shortness Of Breath) tizanidine 4 mg tablet 4 mg PO .2 OR 3 TIMES A DAY PRN (Reason: muscle spasticity) meloxicam 15 mg tablet 15 mg PO QAM gabapentin 800 mg tablet 800 mg PO BID lisinopril 40 mg tablet 40 mg PO QAM duloxetine 60 mg capsule,delayed release(DR/EC) 60 mg PO BID Discharge Orders: Discharge ED (Routine); Ordered 03/14/23 Ordered By: Cirilo Valentine Referrals: Charissa Reilly MD [Primary Care Provider] - Discharge Diet: Usual diet Discharge Activity: Increase activity as tolerated Patient Instructions: Opioid Safety, Pain Management Activity Restrictions/Additional Instructions: Thank you for choosing [facility] for your healthcare needs today. Please realize this is an emergency room and that we are providing you with a medical screening exam and this may not be complete and all inclusive of all the testing and or work up that you may need to determine your ailment or severity of your illness. It is very important that you follow up as instructed or that you return to the Emergency Department should you have concerns or if your condition changes or worsens in any way. You are seen in after a near syncopal episode related to attempt to remove fransisco from the scalp. Your blood pressure improved after he given IV fluids. You are we are able to successfully remove fransisco without difficulty in the emergency room. Follow-up with primary care doctor as needed. Coding Level of Care Code ED Cereal Chemist for Elliott Brizuela
--- NOTE | 2023-03-14 10:44 | PC.PHAR ---
Addendum entered by Abigail Fox 03/14/23 12:51: medications entered are what the pts brother aida states the pt takes-aida states the pt takes gabapentin 800mg bid rx filled 10/10/22 30d/s 1 refill for 800mg tid-aida states the pts topiramate 100mg daily was dced ext shows last filled 09/11/22 90d/s Original Note: pt states her brother aida sets up her medications-called aida [phone] left message
[2023-03-14 10:51] VITALS: BP 97/52; PULSE 87; RESP 18; O2SAT 93
[2023-03-14 10:56] LABS: Basophils # 0.1 10^3/uL (0.0-0.1); Basophils % 0.8 %; Eosinophils # 0.2 10^3/uL (0.0-0.8); Hematocrit 43.1 % (36-47); Lymphocytes # 2.1 10^3/uL (0.8-4.8); Lymphocytes % 17.4 %; Mean Corpuscular HGB Conc 33.6 g/dL (30-55); Mean Corpuscular Hemoglobin 30.3 pg (27-33); Mean Platelet Volume 11.6 fL (7.4-10.4); Monocytes # 0.8 10^3/uL (0.2-0.9); Neutrophils # 8.51 10^3/uL (1.8-7.7); Neutrophils % 72.2 %; Nucleated Red Blood Cells % 0 %; Platelet Count 312 10^3/cmm (157-399); Red Blood Count 4.79 10^6/uL (3.85-5.65); Red Cell Distribution Width 13.6 % (12.1-15.1); White Blood Count 11.79 10^3/uL (3.29-11.43)
[2023-03-14 11:17] LABS: Albumin Level 3.4 g/dL (3.5-5.2); Alkaline Phosphatase 175 U/L (35-105); Blood Urea Nitrogen 19 mg/dL (6-20); Carbon Dioxide 20 mmol/L (22-29); Chloride 101 mmol/L (98-107); Globulin 3.8 g/dL (1.3-4.6); Glucose 82 mg/dL (65-115); Osmolality Calculated 281 mOsm/kg (285-295); Sodium 135 mmol/L (136-145); Total Bilirubin 0.7 mg/dL (0.15-1.2); Total Protein 7.2 g/dL (6.6-8.7)
[2023-03-14 11:24] LABS: Alanine Aminotransferase 42 U/L (0-33); Anion Gap 18.1 (5-19); Aspartate Amino Transferase 31 U/L (0-32); Potassium 4.1 mmol/L (3.5-5.1)
[2023-03-14] MEDS: sodium chloride 0.9% 1,000 ML 999 ML IV ×2 (11:24→13:13)
[2023-03-14 12:10] VITALS: BP 103/58; PULSE 72; RESP 18; O2SAT 97
[2023-03-14 12:20] VITALS: BP 103/68; BP 105/70; BP 95/53; PULSE 71; PULSE 73; PULSE 77
[2023-03-14 13:00] VITALS: BP 93/67; O2SAT 96
== END 2023-03-14 15:36 | disposition home or self-care (01) ==
PROVIDERS: Emergency Provider Family Medicine; PCP Family Medicine
DX: R55 Syncope and collapse (principal); E78.5 Hyperlipidemia, unspecified
CPT/HCPCS: 36415; 80053; 85025; 93005; 96360; 96361; 99284; J7030

== ENCOUNTER → 2023-06-23 09:53 | Outpatient (BNVA) | payer MEDICARE, MEDICAID, SELFPAY | PROVIDERS: PCP Family Medicine; Referring Provider Family Medicine; Visit Provider Psychiatry & Neurology Neurology | DX: R55 Syncope and collapse (principal) | CPT/HCPCS: 99203 ==

== ENCOUNTER 2023-07-11 12:24 | Outpatient (CLI) | payer MEDICARE, MEDICAID, SELFPAY ==
--- NOTE | 2023-07-11 13:15 | USCV_ITS ---
Aleksandr Bhat Age: 58 Gender: F : 1965 Exam Date: 07/11/2023 13:03 Ordering Phys: Jan Goyal MD Technologist: CT Exam Location: [facility] [place]_ Indication: syncope Risk Factors: Previous Vascular Surgery: Right Brachial BP: / Left Brachial BP: / Right Left Velocity (cm/s) Spectral Plaque Velocity (cm/s) Spectral Plaque Syst/Diast Broadening Syst/Diast Broadening 82.80/ 15.40 Prox CCA 86.50 / 19.80 77.50/ 16.10 Mid CCA 89.10 / 23.70 71.60/ 20.00 Distal CCA 74.70 / 18.10 43.60/ 18.00 Prox ICA 34.30 / 13.40 53.10/ 17.00 Mid ICA 49.00 / 19.50 42.50/ 17.40 Distal ICA 54.30 / 21.10 95.50 ECA 80.10 0.70 ICA/CCA 0.70 Antegrade Vertebral Antegrade 34.20/ 9.00 cm/s 50.40/ 15.50 cm/s Tri Subclavian Tri 89.20 84.00 FINDINGS Comparison: none available. No significant elevation of systolic or diastolic velocities. Waveforms are normal. Antegrade vertebral arteries. Prominent systolic cleft left vertebral artery, possible prevertebral steal. CONCLUSIONS Bilateral ICA stenosis less than 50%. Mild carotid atheroslerosis. Possible left vertebral artery prevertebral steal. Consider CTA to assess left subclavian artery. Dr. Ashley Damon DO (Electronically Signed) Final Date: 11 July 2023 14:51 S
--- NOTE | 2023-07-11 13:45 | USCV_ITS ---
Aleksandr Bhat Age: 58 Gender: F : 1965 Exam Date: 07/11/2023 13:24 Ordering Phys: Jan Goyal MD Technologist: CT Exam [place] [facility] [place] Indication: syncope BP: 209 / 89 HR: 89 Rhythm: Sinus Technical Quality: Technically difficult study MEASUREMENTS (Male / Female) Normal Values 2D ECHO LVOT Diameter 1.9 cm LV Ejection Fraction MOD 2C 50.9 % LV Ejection Fraction 2C AL 53.0 % LA Diameter 3.2 cm RA Systolic Volume 4C AL 28.7 ml RA Systolic Volume 4C MOD 29.1 ml Aorta at Sinotubular Diameter 1.9 cm IVC Diameter 1.7 cm M-MODE LA Ao Ratio MM 2.0 AV Cusp Separation MM 1.9 cm DOPPLER AV Peak Velocity 166.0 cm/s LVOT Peak Velocity 114.0 cm/s AV Area Cont Eq vti 2.0 cm squared AV Area Cont Eq pk 2.0 cm squared MV Peak Velocity 120.0 cm/s MV Area PHT 4.6 cm squared Mitral E to A Ratio 0.9 TV Peak Velocity 126.5 cm/s TR Peak Velocity 133.0 cm/s TR Peak Gradient 7.1 mmHg TV Peak E Velocity 88.0 cm/s Right Atrial Pressure 3.0 mmHg Pulmonary Artery Systolic Pressu 10.1 mmHg PV Peak Velocity 119.0 cm/s FINDINGS Left Ventricle Normal left ventricular size and systolic function, EF 55%. No regional wall motion abnormalities. Mild left ventricular hypertrophy. Grade I/IV diastolic dysfunction (abnormal relaxation filling pattern), normal to mildly elevated filling pressures. Right Ventricle The right ventricle is normal in size and function. Right Atrium The right atrium is normal in size. Left Atrium Upper limit of normal Mitral Valve No gross abnormalities noted Aortic Valve Thickened aortic valve. Tricuspid Valve No gross abnormalities noted Pulmonic Valve Pulmonic valve not well visualized. Pericardium Normal pericardium without effusion. Aorta Normal ascending aorta dimension. IVC Normal inferior vena cava. CONCLUSIONS Normal left ventricular size and systolic function, EF 55%. No regional wall motion abnormalities. Mild concentric left and hypertrophy with features of grade 1 left-ventricular diastolic dysfunction Left atrium upper limit of normal size Thickened aortic valve. Normal cardiac chamber sizes. There is no pericardial effusion. There are no intracardiac masses. No similar previous studies are available for comparison Dr Ino Snow MD FACC (Electronically Signed) Final Date: 11 July 2023 17:20 S
--- NOTE | 2023-07-11 14:30 | CT_ITS ---
WS: [id number] CT HEAD NONCONTRAST HISTORY: R55 - Syncope and collapse TECHNIQUE: Contiguous axial imaging performed through the brain in 2.5 mm imaging. Bone and soft tiss ue windows. Sagittal and coronal reformats reviewed. All CT scans at [facility] use at least one of these dose optimization techniques: automated exposure control; mA and/or kV adjustment per pa tient size (includes targeted exams where dose is matched to clinical indication); or iterative recon struction. DLP: 1253.04 mGy.cm COMPARISON: None available. No acute intracranial hemorrhage, midline shift or mass effect. No atrophy or prior infarcts or herniation. Ventricles: Normal size with no hydrocephalus. Paranasal sinuses: As visualized are clear. Mastoid air cells: Well pneumatized. Calvarium and scalp: Skull is intact with no soft tissue edema or swelling. IMPRESSION: Negative head CT.
== END 2023-07-11 12:25 | disposition home or self-care (01) ==
LOC: RAD 12:25
PROVIDERS: PCP Family Medicine; Visit Provider Psychiatry & Neurology Neurology
DX: R55 Syncope and collapse (principal)
CPT/HCPCS: 70450; 93306; 93880

== ENCOUNTER → 2023-07-29 10:47 | Outpatient (BNVA) | payer MEDICARE, MEDICAID, SELFPAY | PROVIDERS: PCP Family Medicine; Visit Provider Psychiatry & Neurology Neurology | DX: R55 Syncope and collapse (principal) | CPT/HCPCS: 95812 ==

== ENCOUNTER → 2023-09-23 11:19 | Outpatient (BNVA) | payer MEDICARE, MEDICAID, SELFPAY | PROVIDERS: PCP Family Medicine; Visit Provider Family Medicine | DX: I10 Essential (primary) hypertension (principal); E78.5 Hyperlipidemia, unspecified; R73.03 Prediabetes | CPT/HCPCS: 80053; 80061; 83036; 85025 ==

== ENCOUNTER → 2023-11-17 10:37 | Outpatient (BNVA) | payer MEDICARE, MEDICAID, SELFPAY | PROVIDERS: PCP Family Medicine; Visit Provider Family Medicine | DX: R10.9 Unspecified abdominal pain (principal) | CPT/HCPCS: 80053; 83690 ==

== ENCOUNTER 2024-03-01 14:35 | Emergency (ER) | payer MEDICARE, MEDICAID, SELFPAY ==
[2024-03-01 14:42] VITALS: BP 173/95; PULSE 85; RESP 19; TEMP 36.6; O2SAT 98
--- NOTE | 2024-03-01 14:48 | ECG_ITS ---
[email or web address] Test Date: 2024-03-01 Pat Name: Aleksandr Bhat Department: Room: Gender: Female Aging Room Operator: : 1965 Requested By: Bruna Katz Order Number: [id number] Holden MD: Ino Snow M.D. Measurements Intervals [place] Rate: 80 P: 82 AR: 140 QRS: -9 QRSD: 108 T: 53 QT: 415 QTc: 479 Interpretive Statements SINUS RHYTHM WITH SINUS ARRHYTHMIA POSSIBLE ANTERIOR MYOCARDIAL INFARCTION , OF INDETERMINATE AGE [30 ms Q WAVE IN V3/V4, OR R < 0.2 mV IN V4] Compared to ECG 03/14/2023 10:29:13 Myocardial infarct finding now present Junctional rhythm no longer present Electronically Signed On 03-01-2024 19:26:11 SERVICE OPERATIONS MANAGER by Ino Snow M.D. [email or web address]
[2024-03-01 15:42] LABS: Basophils # 0.1 10^3/uL (0.0-0.1); Basophils % 0.9 %; Eosinophils # 0.2 10^3/uL (0.0-0.8); Lymphocytes # 1.6 10^3/uL (0.8-4.8); Lymphocytes % 17.3 %; Mean Corpuscular HGB Conc 32.6 g/dL (30-55); Mean Corpuscular Hemoglobin 30.3 pg (27-33); Mean Corpuscular Volume 92.9 fl (85-98); Mean Platelet Volume 10.7 fL (7.4-10.4); Monocytes # 0.5 10^3/uL (0.2-0.9); Monocytes % 5.8 %; Neutrophils # 6.72 10^3/uL (1.8-7.7); Neutrophils % 73.7 %; Nucleated Red Blood Cells % 0 %; Platelet Count 328 10^3/cmm (157-399); Red Blood Count 4.95 10^6/uL (3.85-5.65); Red Cell Distribution Width 13.2 % (12.1-15.1); White Blood Count 9.12 10^3/uL (3.29-11.43)
--- NOTE | 2024-03-01 15:48 | PC.PHAR ---
Pt unable to verify medications-unknown last taken. Verified medications per pharmacy last fill dates and days supply
--- NOTE | 2024-03-01 15:49 | ED.C_ITS ---
HPI - Psych 2 General: Chief Complaint: Psychiatric Symptoms Stated Complaint: MHE Time Seen by Provider: 03/01/24 14:46 History of Present Illness: 58-year-old female with history of intel lectual delay with reported developmental level of a 3-year-old, hypertension and hyperlipidemia who presents to the emergency room with worsening agitation. She presents by ambulance from home. Apparently she had become very agitated and angry. Family was not present initially but I did talk to them later and they stated she does this sometimes and usually she will calm down and go home. Related Data Previous Rx's Medication Instructions Recorded atorvastatin 40 mg tablet 40 mg PO DAILY 90 days #90 tabs 11/17/23 duloxetine 60 mg capsule,delayed 60 mg PO DAILY 90 days #90 caps 11/17/23 release lisinopril 20 mg tablet 20 mg PO DAILY 90 days #90 tabs 11/17/23 tizanidine 4 mg tablet 4 mg PO TID PRN muscle spasticity 11/17/23 30 days #90 tabs doxycycline hyclate 100 mg capsule 100 mg PO BID 10 days #20 caps 03/01/24 Allergies Allergy/AdvReac Type Severity Reaction Status Date / Time No Known Allergies Allergy Verified 03/01/24 12:16 Review of Systems 2 Narrative: Constitutional symptoms: Negative except as documented in HPI. Skin symptoms: Negative except as documented in HPI. Eye symptoms: Negative except as documented in HPI. ENMT symptoms: Negative except as documented in HPI. Respiratory symptoms: Negative except as documented in HPI. Cardiovascular symptoms: Negative except as documented in HPI. Gastrointestinal symptoms: Negative except as documented in HPI. Genitourinary symptoms: Negative except as documented in HPI. Musculoskeletal symptoms: Negative except as documented in HPI. Neurologic symptoms: Negative except as documented in HPI. Psychiatric symptoms: Negative except as documented in HPI. Endocrine symptoms: Negative except as documented in HPI. PFSH ED 2 PFSH: Medical History (Updated 03/01/24 @ 17:00 by Bruna Arriaza MD) Syncopal episodes Depression Hypokalemia GERD (gastroesophageal reflux disease) Hyperlipidemia Surgical History History of cholecystectomy H/O exploratory laparotomy Social History Smoking and tobacco/nicotine status: never used tobacco/nicotine Alcohol intake: never Substance/Drug Use: never Female Reproductive History: Spontaneous abortions: No Physical Exam 2 Narrative: EXAM NARRATIVE: General: Alert. no acute distress Skin: Warm, dry Head: Normocephalic, atraumatic. Neck: Supple, trachea midline. Eye: Extraocular movements are intact. Ears, nose, mouth and throat: Oral mucosa moist. Cardiovascular: Regular rate and rhythm, Normal peripheral perfusion. Respiratory: Lungs are clear to auscultation, respirations are non-labored, breath sounds are equal, Symmetrical chest wall expansion. Gastrointestinal: Soft, Nontender, Non distended, Normal bowel sounds. Musculoskeletal: Normal ROM, no deformity. Neurological: Not Alert and oriented to person, place, time, and situation, No focal neurological deficit observed. Psychiatric: Patient is agitated and continually screaming mommy Course 2 Vital Signs: Vital signs: Vital Signs Temperature 97.8 F 03/01/24 14:42 Pulse Rate 85 03/01/24 14:42 Respiratory Rate 19 H 03/01/24 14:42 Blood Pressure 173/95 03/01/24 14:42 Pulse Oximetry 98 03/01/24 14:42 Oxygen Delivery Me thod Room Air 03/01/24 14:42 MDM - Psych Medical Decision Making Medical decision making: Differential diagnosis including but not limited to and based on the above HPI, review of systems and physical exam: In this patient with altered mental status: Stroke. Hypoglycemia. Metabolic encephalopathy. Infections such as pneumonia, urinary tract infection, Covid-19, Influenza. Electrolyte abnormalities such as hypernatremia. Renal failure / uremia. Hepatic encephalopathy. Hypoxemia. Hypercapnic respiratory failure. Psychosis. Drug or alcohol intoxication. Medication overdose. Orders placed to evaluate differential diagnosis based on the above differential, HPI and physical exam EKG: Time 1607. Rate 80. Normal sinus rhythm, No ST-T changes, no ectopy, normal IL & QRS intervals, This was reviewed and interpreted by myself the ER physician at 1610. Lab Review: Laboratory results were reviewed and interpreted by myself the emergency room physician. Lab work is unremarkable. No leukocytosis. No anemia. No renal failure. No urinary tract infection. Liver enzymes are normal. I reviewed the patient's medical record. Reexamination: Patient is now quite somnolent. She received medications that she was very agitated. She is no longer agitated. Family agrees to take her home. Apparently this is a common occurrence for her and normally she will calm down and they will be able to take her home. Assessment and plan: Low functioning intelligence Behavioral issues/agitation - Discharged home - Discussed plan with patient. Answered any questions. - Evaluation and treatment of this problem were appropriate in the emergency setting. Lab Data 03/01/24 15:31 03/01/24 15:31 Laboratory Results WBC 9.12 10^3/uL (3.29-11.43) 03/01/24 15: RBC 4.95 10^6/uL (3.85-5.65) 03/01/24 15: Hgb 15.00 g/dL (11.27-16.99) 03/01/24 15: Hct 46.0 % (36-47) 03/01/24 15: MCV 92.9 fl (85-98) 03/01/24 15: MCH 30.3 pg (27-33) 03/01/24 15: MCHC 32.6 g/dL (30-55) 03/01/24 15: RDW 13.2 % (12.1-15.1) 03/01/24 15: Plt Count 328 10^3/cmm (157-399) 03/01/24 15: MPV 10.7 fL (7.4-10.4) H 03/01/24 15:31 Neut % (Auto) 73.7 % 03/01/24 15: Lymph % (Auto) 17.3 % 03/01/24 15: [place] % (Auto) 5.8 % 03/01/24 15: Eos % (Auto) 2.0 % 03/01/24 15: Baso % (Auto) 0.9 % 03/01/24 15: Neut # (Auto) 6.72 10^3/uL (1.8-7.7) 03/01/24 15: Lymph # (Auto) 1.6 10^3/uL (0.8-4.8) 03/01/24 15: [place] # (Auto) 0.5 10^3/uL (0.2-0.9) 03/01/24 15: Eos # (Auto) 0.2 10^3/uL (0.0-0.8) 03/01/24 15:31 Baso # (Auto) 0.1 10^3/uL (0.0-0.1) 03/01/24 15:31 Nucleated RBC % (auto) 0 % 03/01/24 15:31 Nucleated RBCs # 0.0 /100WBC 03/01/24 15:31 Sodium 138 mmol/L (136-145) 03/01/24 15:31 Potassium 4.2 mmol/L (3.5-5.1) 03/01/24 15:31 Chloride 103 mmol/L (98-107) 03/01/24 15:31 Carbon Dioxide 25 mmol/L (22-29) 03/01/24 15:31 Anion Gap 14.2 (5-19) 03/01/24 15:31 BUN 15 mg/dL (8-23) 03/01/24 15:31 Creatinine 0.8 mg/dL (0.5-0.9) 03/01/24 15:31 GFR Calculation 73.2 mL/min (90-130) L 03/01/24 15:31 Glucose 114 mg/dL (65-115) 03/01/24 15:31 Calculated Osmolality 288 mOsm/kg (285-295) 03/01/24 15:31 Lactic Acid 1.3 mmol/L (0.5-2.2) 03/01/24 15:31 Calcium 8.0 mg/dL (8.5-10.5) L 03/01/24 15:31 Total Bilirubin 0.6 mg/dL (0.15-1.2) 03/01/24 15:31 AST 20 U/L (0-32) 03/01/24 15:31 ALT 12 U/L (0-33) 03/01/24 15:31 Alkaline Phosphatase 153 U/L (35-105) H 03/01/24 15:31 Total Protein 7.4 g/dL (6.6-8.7) 03/01/24 15:31 Albumin 3.8 g/dL (3.5-5.2) 03/01/24 15:31 Globulin 3.6 g/dL (1.3-4.6) 03/01/24 15:31 Urine Color Yellow (Yellow) 03/01/24 16:22 Urine Appearance Clear (CLEAR) 03/01/24 16:22 Urine pH 5.0 (5-7) 03/01/24 16:22 Ur Specific [place] 1.023 (1.005-1.030) 03/01/24 16:22 Urine Protein Trace (Negative) A 03/01/24 16:22 Urine Glucose (UA) Negative (Normal) 03/01/24 16:22 Urine Ketones Negative (Negative) 03/01/24 16:22 Urine Blood Negative (Negative) 03/01/24 16:22 Urine Nitrate Negative (Negative) 03/01/24 16:22 Urine Bilirubin Negative (Negative) 03/01/24 16:22 Urine Urobilinogen 1.0 mg/dL (Negative) 03/01/24 16:22 Ur Leukocyte Esterase Negative (Negative) 03/01/24 16:22 Urine RBC 0-2 /hpf (0-2) 03/01/24 16:22 Urine WBC 0-5 /hpf (0-5) 03/01/24 16:22 Ur Squamous Epith Cells 0-5 /hpf (0-5) 03/01/24 16:22 Amorphous Sediment Not Reportable 03/01/24 16:22 Urine Bacteria None seen /hpf (NONE) 03/01/24 16:22 Hyaline Casts 5.77 /lpf 03/01/24 16:22 Salicylates < 0.3 mg/dL (3-10) L 03/01/24 15:31 Urine Opiates Screen Negative ng/mL (Negative) 03/01/24 16:22 Acetaminophen < 5.0 ug/mL (10-30) L 03/01/24 15:31 Ur Barbiturates Screen Negative ng/mL (Negative) 03/01/24 16:22 Ur Phencyclidine Scrn Negative ng/mL (Negative) 03/01/24 16:22 Ur Amphetamines Screen Negative ng/mL (Negative) 03/01/24 16:22 U Benzodiazepines Scrn Negative ng/mL (Negative) 03/01/24 16:22 Urine Cocaine Screen Negative ng/mL (Negative) 03/01/24 16:22 U Marijuana (THC) Screen Negative ng/mL (Negative) 03/01/24 16:22 Ethyl Alcohol < 10 mg/dL (0-10) 03/01/24 15:31 No radiology studies performed this visit Discharge Plan Discharge Patient Disposition: Home Clinical Impression: Aggressive behavior Condition: Stable Prescriptions: No Action atorvastatin 40 mg tablet 40 mg PO DAILY 90 Days Qty: 90 1RF duloxetine 60 mg capsule,delayed release(DR/EC) 60 mg PO DAILY 90 Days Qty: 90 1RF lisinopril 20 mg tablet 20 mg PO DAILY 90 Days Qty: 90 1RF tizanidine 4 mg tablet 4 mg PO TID PRN (Reason: muscle spasticity) 30 Days Qty: 90 2RF doxycycline hyclate 100 mg capsule 100 mg PO BID 10 Days Qty: 20 0RF Discharge Orders: Discharge ED (Routine); Ordered 03/01/24 Ordered By: Bruna Arriaza Referrals: Charissa Reilly MD [Primary Care Provider] - Discharge Diet: Usual diet Discharge Activity: Increase activity as tolerated Patient Instructions: Opioid Safety, Pain Management Activity Restrictions/Additional Instructions: Thank you for choosing [facility] for your healthcare needs today. Please realize this is an emergency room and that we are providing you with a medical screening exam and this may not be complete and all inclusive of all the testing and or work up that you may need to determine your ailment or severity of your illness. You have been screened and evaluated and felt safe for discharge. Health conditions do change or evolve sometimes and as such it is important that you follow up with your Primary Doctor to be re checked, 3-5 days is a general good time frame for follow up. You are always welcome to return to the ED for re assessment if your symptoms are worsening or you have new concerns Coding Level of Care Code ED Buffet Server for Elliott Brizuela
[2024-03-01] MEDS: LORazepam 2 mg/mL INJ 1 mL IM (15:52)
[2024-03-01] MEDS: water for injection-sterile 10 ML 999 ML (15:55)
[2024-03-01] MEDS: ziprasidone 20 mg/mL SDV IM (15:56)
[2024-03-01 15:58] LABS: Alanine Aminotransferase 12 U/L (0-33); Albumin Level 3.8 g/dL (3.5-5.2); Alkaline Phosphatase 153 U/L (35-105); Blood Urea Nitrogen 15 mg/dL (8-23); Carbon Dioxide 25 mmol/L (22-29); Chloride 103 mmol/L (98-107); Globulin 3.6 g/dL (1.3-4.6); Glomerular Filtration Rate 73.2 mL/min (90-130); Glucose 114 mg/dL (65-115); Osmolality Calculated 288 mOsm/kg (285-295); Sodium 138 mmol/L (136-145); Total Bilirubin 0.6 mg/dL (0.15-1.2); Total Protein 7.4 g/dL (6.6-8.7)
[2024-03-01 15:59] LABS: Lactic Sepsis W/Reflex 1.3 mmol/L (0.5-2.2)
[2024-03-01 16:11] LABS: Acetaminophen < 5.0 ug/mL (10-30); Alcohol Level < 10 mg/dL (0-10); Anion Gap 14.2 (5-19); Potassium 4.2 mmol/L (3.5-5.1); Salicylate < 0.3 mg/dL (3-10)
[2024-03-01 16:12] LABS: Aspartate Amino Transferase 20 U/L (0-32)
[2024-03-01 16:35] LABS: Bilirubin Urine Negative (Negative); Blood Urine Negative (Negative); Glucose Urine UA Negative (Normal); Ketones Urine Negative (Negative); Leukocyte Esterase Urine Negative (Negative); Nitrate Urine Negative (Negative); Protein Urine Trace (Negative); Specific Gravity, Urine 1.023 (1.005-1.030); Urine Appearance Clear (CLEAR); Urine Color Yellow (Yellow)
[2024-03-01 16:37] LABS: Bacteria Urine None Seen /hpf; Hyaline Casts Urine 5.77 /lpf; RBC Urine 0-2 /hpf (0-2); Squamous Epithelial Cell Urine 0-5 /hpf (0-5); WBC Urine 0-5 /hpf (0-5)
[2024-03-01 16:44] LABS: Amphetamines Screen Urine Negative (Negative); Barbiturates Screen Urine Negative (Negative); Benzodiazepines Screen Urine Negative (Negative); Cocaine Screen Urine Negative (Negative); Opiate Screen Urine Negative (Negative); PCP Screen Urine Negative (Negative); THC Screen Urine Negative (Negative)
[2024-03-01 17:28] VITALS: BP 152/91; PULSE 81; O2SAT 95
== END 2024-03-01 17:31 | disposition home or self-care (01) ==
PROVIDERS: Emergency Provider Emergency Medicine; PCP Family Medicine
DX: R45.4 Irritability and anger (principal); E78.5 Hyperlipidemia, unspecified
CPT/HCPCS: 80053; 80306; 80307; 81001; 83605; 85025; 87040; 93005; 96372; 99284; J2060; J3486

== ENCOUNTER 2024-03-02 19:34 | Emergency (ER) | payer MEDICARE, MEDICAID, SELFPAY ==
[2024-03-02 19:35] VITALS: BP 132/74; PULSE 95; RESP 18; TEMP 36.7; O2SAT 97; BMI 44.6
[2024-03-02] MEDS: haloperidol inj 5 mg/mL INJ 1 mL IM ×2 (19:51→19:54)
[2024-03-02] MEDS: LORazepam 2 mg/mL INJ 1 mL IM (19:51)
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
[2024-03-02] MEDS: diphenhydrAMINE 50 mg/mL SDV 1mL IM (19:55)
[2024-03-02 21:30] VITALS: BP 121/72; PULSE 95; RESP 18; O2SAT 95
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
--- NOTE | 2024-03-04 01:08 | DCPLANNER ---
Message sent to [facility] for follow up on Anger management.
== END 2024-03-02 21:53 | disposition home or self-care (01) ==
PROVIDERS: Emergency Provider Emergency Medicine; PCP Family Medicine
DX: R46.89 Other symptoms and signs involving appearance and behavior (principal); E78.5 Hyperlipidemia, unspecified
CPT/HCPCS: 96372; 99284; J1200; J1630; J2060

== ENCOUNTER 2024-07-10 20:14 | Emergency (ER) | payer OTHER, MEDICAID, SELFPAY ==
[2024-07-10 20:15] VITALS: BP 116/78; PULSE 97; RESP 18; TEMP 36.7; O2SAT 95; BMI 42.9
--- NOTE | 2024-07-10 20:27 | ED.C_ITS ---
Documented by User: Cirilo Valentine DO 07/10/24 21:16 HPI - Psych 2 General: Chief Complaint: Psychiatric Symptoms Stated Complaint: SI Time Seen by Provider: 07/10/24 20:19 Related Data Previous Rx's ?Medication ?Instructions ?Recorded atorvastatin 40 mg tablet 40 mg PO DAILY 90 days #90 t abs 11/17/23 tizanidine 4 mg tablet 4 mg PO TID PRN muscle spast icity 11/17/23 30 days #90 tabs doxycycline hyclate 100 mg capsule 100 mg PO BID 10 da ys #20 caps 03/01/24 lisinopril 20 mg tablet See Rx Instructions .Route 1 05/16/23 .COMPLEX #90 tabs duloxetine 60 mg capsule,delayed 60 mg PO DAILY 90 day s #90 caps 06/24/24 release Allergies Allergy/AdvReac Type Severity Reaction Status Date / Time No Known Allergies Allergy Verified 03/01/24 12:16 Review of Systems 2 Const: Denies: fever(s) or chills Card: Denies: chest pain Resp: Denies: dyspnea GI: Denies: abdominal pain : Denies: dysuria, urinary frequency or urinary urgency Musc: Denies: neck pain or back pain Skin/Breast: Denies: rash PFSH ED 2 PFSH: Medical History (Updated 07/11/24 @ 00:32 by Ishmael Faustin DO) Psychiatric care Syncopal episodes Depression Hypokalemia GERD (gastroesophageal reflux disease) Hyperlipidemia Surgical History History of cholecystectomy H/O exploratory laparotomy Social History Smoking and tobacco/nicotine status: never used tobacco/nicotine Alcohol intake: never Substance/Drug Use: never Female Reproductive History: Spontaneous abortions: No Physical Exam 2 Const: GENERAL APPEARANCE: cooperative ORIENTATION/CONSCIOUSNESS: Yes awake, Yes oriented to person, Yes oriented to place and Yes oriented to time HENMT: COMMON NORMALS: normocephalic, atraumatic and hearing grossly normal bilaterally HEAD & SCALP: normocephalic and atraumatic Resp: COMMON NORMALS: normal respiratory effort, No retractions, No use of accessory muscles and clear to auscultation bilaterally AUSCULTATION: clear to auscultation bilaterally Cardio: COMMON NORMALS: regular rate, regular rhythm and No murmurs present (Cardio) RATE: regular rate RHYTHM: regular rhythm GI: COMMON NORMALS: Soft to palpation and No hepatosplenomegaly present A USCULTATION: Yes normoactive bowel sounds PALPATION: Yes Soft to palpation, No Tenderness to palpation present (GI), No Guarding due to palpation present (GI) and Yes No hepatosplenomegaly present Extremity: COMMON NORMALS: normal to inspection, capillary refill normal, no clubbing, cyanosis or edema, no calf tenderness and no pedal edema Neuro: SENSORIUM/ORIENTATION: Yes oriented to person, Yes oriented to place and Yes oriented to time Skin: COMMON NORMALS: no rashes or lesions noted GENERAL SKIN EXAM: no rashes or lesions noted Course 2 Vital Signs: Vital signs: Vital Signs Temperature 98.1 F 07/10/24 20:15 Pulse Rate 97 07/10/24 20:15 Respiratory Rate 18 07/10/24 20:15 Blood Pressure 116/78 07/10/24 20:15 Pulse Oximetry 95 07/10/24 20:15 Oxygen Delivery Me thod Room Air 07/10/24 20:15 MDM - Psych Lab Data 07/10/24 20:38 07/10/24 20:38 Laboratory Results WBC 10.94 10^3/uL (3.29-11.43) 07/10/24 20:38 RBC 4.32 10^6/uL (3.85-5.65) 07/10/24 20:38 Hgb 12.80 g/dL (11.27-16.99) 07/10/24 20:38 Hct 39.6 % (36-47) 07/10/24 20:38 MCV 91.7 fl (85-98) 07/10/24 20:38 MCH 29.6 pg (27-33) 07/10/24 20:38 MCHC 32.3 g/dL (30-55) 07/10/24 20:38 RDW 13.2 % (12.1-15.1) 07/10/24 20:38 Plt Count 304 10^3/cmm (157-399) 07/10/24 20:38 MPV 10.3 fL (7.4-10.4) 07/10/24 20:38 Neut % (Auto) 66.6 % 07/10/24 20:38 Lymph % (Auto) 22.1 % 07/10/24 20:38 [place] % (Auto) 7.0 % 07/10/24 20:38 Eos % (Auto) 2.9 % 07/10/24 20:38 Baso % (Auto) 0.6 % 07/10/24 20:38 Neut # (Auto) 7.27 10^3/uL (1.8-7.7) 07/10/24 20:38 Lymph # (Auto) 2.4 10^3/uL (0.8-4.8) 07/10/24 20:38 [place] # (Auto) 0.8 10^3/uL (0.2-0.9) 07/10/24 20:38 Eos # (Auto) 0.3 10^3/uL (0.0-0.8) 07/10/24 20:38 Baso # (Auto) 0.1 10^3/uL (0.0-0.1) 07/10/24 20:38 Nucleated RBC % (auto) 0 % 07/10/24 20:38 Nucleated RBCs # 0.0 /100WBC 07/10/24 20:38 Sodium 138 mmol/L (136-145) 07/10/24 20:38 Potassium 4.8 mmol/L (3.5-5.1) 07/10/24 20:38 Chloride 103 mmol/L (98-107) 07/10/24 20:38 Carbon Dioxide 25 mmol/L (22-29) 07/10/24 20:38 Anion Gap 14.8 (5-19) 07/10/24 20:38 BUN 38 mg/dL (8-23) H 07/10/24 20:38 Creatinine 0.8 mg/dL (0.5-0.9) 07/10/24 20:38 GFR Calculation 72.9 mL/min (90-130) L 07/10/24 20:38 Glucose 116 mg/dL (65-115) H 07/10/24 20:38 Calculated Osmolality 296 mOsm/kg (285-295) H 07/10/24 20:38 Calcium 8.7 mg/dL (8.5-10.5) 07/10/24 20:38 Total Bilirubin 0.2 mg/dL (0.15-1.2) 07/10/24 20:38 AST 12 U/L (0-32) 07/10/24 20:38 ALT 11 U/L (0-33) 07/10/24 20:38 Alkaline Phosphatase 141 U/L (35-105) H 07/10/24 20:38 Total Protein 7.2 g/dL (6.6-8.7) 07/10/24 20:38 Albumin 3.7 g/dL (3.5-5.2) 07/10/24 20:38 Globulin 3.5 g/dL (1.3-4.6) 07/10/24 20:38 Salicylates < 0.3 mg/dL (3-10) L 07/10/24 20:38 Acetaminophen < 5.0 ug/mL (10-30) L 07/10/24 20:38 Discharge Plan Discharge Patient Disposition: Home Clinical Impression: Cognitive impairment, Aggressive behavior Condition: Stable Prescriptions: No Action atorvastatin 40 mg tablet 40 mg PO DAILY 90 Days Qty: 90 1RF tizanidine 4 mg tablet 4 mg PO TID PRN (Reason: muscle spasticity) 30 Days Qty: 90 2RF doxycycline hyclate 100 mg capsule 100 mg PO BID 10 Days Qty: 20 0RF duloxetine 60 mg capsule,delayed release(DR/EC) 60 mg PO DAILY 90 Days Qty: 90 1RF lisinopril 20 mg tablet See Rx Instructions .ROUTE .COMPLEX Qty: 90 3RF Dose Instruction: TAKE 1 TABLET BY MOUTH DAILY Rx Instructions: TAKE 1 TABLET BY MOUTH DAILY Discharge Orders: Discharge ED (Routine); Ordered 07/11/24 Ordered By: Ishmael Faustin Referrals: Charissa Reilly MD [Primary Care Provider] - 1-3 days Patient Instructions: Opioid Safety, Pain Management Activity Restrictions/Additional Instructions: Return for thoughts or wishes to harm your self or anyone else. Print Language: [place]an Coding Level of Care Code ED [facility] for [facility] Fwd Documented by User: Sloan Carl MD 07/19/24 16:05 HPI - Psych 2 General: Chief Complaint: Psychiatric Symptoms Stated Complaint: SI Time Seen by Provider: 07/10/24 20:19 History of Present Illness: This patient was brought in for evaluation of possible suicidal ideation. Supposedly she got into an argument with one of her brothers who she lives with and she locked herself in the bathroom. Brother evidently told EMS crew that the patient made some suicidal statements. Upon my evaluation patient will not answer my questions other than saying I don't, know I don't know . Patient has a history of traumatic brain injury, depression, aggressive behavior and cognitive impairment. Related Data Previous Rx's ?Medication ?Instructions ?Recorded atorvastatin 40 mg tablet 40 mg PO DAILY 90 days #90 t abs 11/17/23 tizanidine 4 mg tablet 4 mg PO TID PRN muscle spast icity 11/17/23 30 days #90 tabs doxycycline hyclate 100 mg capsule 100 mg PO BID 10 da ys #20 caps 03/01/24 lisinopril 20 mg tablet See Rx Instructions .Route 1 05/16/23 .COMPLEX #90 tabs duloxetine 60 mg capsule,delayed 60 mg PO DAILY 90 day s #90 caps 06/24/24 release Allergies Allergy/AdvReac Type Severity Reaction Status Date / Time No Known Allergies Allergy Verified 03/01/24 12:16 Review of Systems 2 General: Reports: ROS unobtainable due to mental status PFSH ED 2 PFSH: Medical History (Updated 07/11/24 @ 00:32 by Ishmael Faustin DO) Psychiatric care Syncopal episodes Depression Hypokalemia GERD (gastroesophageal reflux disease) Hyperlipidemia Surgical History History of cholecystectomy H/O exploratory laparotomy Social History Smoking and tobacco/nicotine status: never used tobacco/nicotine Alcohol intake: never Substance/Drug Use: never Physical Exam 2 Const: COMMON NORMALS: no acute distress HENMT: COMMON NORMALS: Normal nasal mucous membranes and turbinates present FACE & SINUS: normal facial exam NOSE: Normal nasal mucous membranes and turbinates present Eye: COMMON NORMALS: Equal, round and reactive pupils present, EOMs intact bilaterally and conjunctivae normal GENERAL EYE: appearance normal, both eyes and all related structures CONJUNCTIVA: Yes conjunctivae normal PUPIL: Yes Equal, round and reactive pupils present Neck/C-Spine: COMMON NORMALS: supple and no JVD Chest: COMMONS NORMALS: normal inspection of the chest Cardio: COMMON NORMALS: no JVD : COMMON NORMALS: Yes no CVA tenderness BLADDER/KIDNEY EXAM: Yes no CVA tenderness Back/Pelvis: COMMON NORMALS: no CVA tenderness and thoracic and lumbar spine normal to inspection Neuro: COMMON NORMALS: CN's II-XII intact bilaterally Psych: APPEARANCE: Yes disheveled MEMORY/COGNITION: Yes cognition grossly impaired Course 2 Vital Signs: Vital signs: Vital Signs Temperature 98.1 F 07/10/24 20:15 Pulse Rate 97 07/10/24 20:15 Respiratory Rate 18 07/10/24 20:15 Blood Pressure 116/78 07/10/24 20:15 Pulse Oximetry 95 07/10/24 20:15 Oxygen Delivery Me thod Room Air 07/10/24 20:15 MDM - Psych Medical Decision Making Laboratory workup is underway. The patient's brother evidently is on his way to fill out an affidavit. Patient is stable. Lab Data 07/10/24 20:38 07/10/24 20:38 Laboratory Results WBC 10.94 10^3/uL (3.29-11.43) 07/10/24 20:38 RBC 4.32 10^6/uL (3.85-5.65) 07/10/24 20:38 Hgb 12.80 g/dL (11.27-16.99) 07/10/24 20:38 Hct 39.6 % (36-47) 07/10/24 20:38 MCV 91.7 fl (85-98) 07/10/24 20:38 MCH 29.6 pg (27-33) 07/10/24 20:38 MCHC 32.3 g/dL (30-55) 07/10/24 20:38 RDW 13.2 % (12.1-15.1) 07/10/24 20:38 Plt Count 304 10^3/cmm (157-399) 07/10/24 20:38 MPV 10.3 fL (7.4-10.4) 07/10/24 20:38 Neut % (Auto) 66.6 % 07/10/24 20:38 Lymph % (Auto) 22.1 % 07/10/24 20:38 [place] % (Auto) 7.0 % 07/10/24 20:38 Eos % (Auto) 2.9 % 07/10/24 20:38 Baso % (Auto) 0.6 % 07/10/24 20:38 Neut # (Auto) 7.27 10^3/uL (1.8-7.7) 07/10/24 20:38 Lymph # (Auto) 2.4 10^3/uL (0.8-4.8) 07/10/24 20:38 [place] # (Auto) 0.8 10^3/uL (0.2-0.9) 07/10/24 20:38 Eos # (Auto) 0.3 10^3/uL (0.0-0.8) 07/10/24 20:38 Baso # (Auto) 0.1 10^3/uL (0.0-0.1) 07/10/24 20:38 Nucleated RBC % (auto) 0 % 07/10/24 20:38 Nucleated RBCs # 0.0 /100WBC 07/10/24 20:38 Sodium 138 mmol/L (136-145) 07/10/24 20:38 Potassium 4.8 mmol/L (3.5-5.1) 07/10/24 20:38 Chloride 103 mmol/L (98-107) 07/10/24 20:38 Carbon Dioxide 25 mmol/L (22-29) 07/10/24 20:38 Anion Gap 14.8 (5-19) 07/10/24 20:38 BUN 38 mg/dL (8-23) H 07/10/24 20:38 Creatinine 0.8 mg/dL (0.5-0.9) 07/10/24 20:38 GFR Calculation 72.9 mL/min (90-130) L 07/10/24 20:38 Glucose 116 mg/dL (65-115) H 07/10/24 20:38 Calculated Osmolality 296 mOsm/kg (285-295) H 07/10/24 20:38 Calcium 8.7 mg/dL (8.5-10.5) 07/10/24 20:38 Total Bilirubin 0.2 mg/dL (0.15-1.2) 07/10/24 20:38 AST 12 U/L (0-32) 07/10/24 20:38 ALT 11 U/L (0-33) 07/10/24 20:38 Alkaline Phosphatase 141 U/L (35-105) H 07/10/24 20:38 Total Protein 7.2 g/dL (6.6-8.7) 07/10/24 20:38 Albumin 3.7 g/dL (3.5-5.2) 07/10/24 20:38 Globulin 3.5 g/dL (1.3-4.6) 07/10/24 20:38 Salicylates < 0.3 mg/dL (3-10) L 07/10/24 20:38 Acetaminophen < 5.0 ug/mL (10-30) L 07/10/24 20:38 No radiology studies performed this visit Discharge Plan Discharge Patient Disposition: Home Clinical Impression: Cognitive impairment, Aggressive behavior Condition: Stable Prescriptions: No Action atorvastatin 40 mg tablet 40 mg PO DAILY 90 Days Qty: 90 1RF tizanidine 4 mg tablet 4 mg PO TID PRN (Reason: muscle spasticity) 30 Days Qty: 90 2RF doxycycline hyclate 100 mg capsule 100 mg PO BID 10 Days Qty: 20 0RF duloxetine 60 mg capsule,delayed release(DR/EC) 60 mg PO DAILY 90 Days Qty: 90 1RF lisinopril 20 mg tablet See Rx Instructions .ROUTE .COMPLEX Qty: 90 3RF Dose Instruction: TAKE 1 TABLET BY MOUTH DAILY Rx Instructions: TAKE 1 TABLET BY MOUTH DAILY Discharge Orders: Discharge ED (Routine); Ordered 07/11/24 Ordered By: Ishmael Faustin Referrals: Charissa Reilly MD [Primary Care Provider] - 1-3 days Patient Instructions: Opioid Safety, Pain Management Activity Restrictions/Additional Instructions: Return for thoughts or wishes to harm your self or anyone else. Print Language: [place]an Coding Level of Care Code ED [facility] for [facility] Brizuela
[2024-07-10 20:49] LABS: Basophils # 0.1 10^3/uL (0.0-0.1); Basophils % 0.6 %; Eosinophils # 0.3 10^3/uL (0.0-0.8); Eosinophils % 2.9 %; Hematocrit 39.6 % (36-47); Lymphocytes # 2.4 10^3/uL (0.8-4.8); Lymphocytes % 22.1 %; Mean Corpuscular HGB Conc 32.3 g/dL (30-55); Mean Corpuscular Hemoglobin 29.6 pg (27-33); Mean Corpuscular Volume 91.7 fl (85-98); Mean Platelet Volume 10.3 fL (7.4-10.4); Monocytes # 0.8 10^3/uL (0.2-0.9); Neutrophils # 7.27 10^3/uL (1.8-7.7); Neutrophils % 66.6 %; Nucleated Red Blood Cells % 0 %; Platelet Count 304 10^3/cmm (157-399); Red Blood Count 4.32 10^6/uL (3.85-5.65); Red Cell Distribution Width 13.2 % (12.1-15.1); White Blood Count 10.94 10^3/uL (3.29-11.43)
[2024-07-10 21:28] LABS: Alanine Aminotransferase 11 U/L (0-33); Albumin Level 3.7 g/dL (3.5-5.2); Alkaline Phosphatase 141 U/L (35-105); Anion Gap 14.8 (5-19); Aspartate Amino Transferase 12 U/L (0-32); Blood Urea Nitrogen 38 mg/dL (8-23); Calcium 8.7 mg/dL (8.5-10.5); Carbon Dioxide 25 mmol/L (22-29); Chloride 103 mmol/L (98-107); Globulin 3.5 g/dL (1.3-4.6); Glomerular Filtration Rate 72.9 mL/min (90-130); Glucose 116 mg/dL (65-115); Osmolality Calculated 296 mOsm/kg (285-295); Potassium 4.8 mmol/L (3.5-5.1); Sodium 138 mmol/L (136-145); Total Bilirubin 0.2 mg/dL (0.15-1.2); Total Protein 7.2 g/dL (6.6-8.7)
[2024-07-10 21:34] LABS: Acetaminophen < 5.0 ug/mL (10-30); Salicylate < 0.3 mg/dL (3-10)
[2024-07-11] MEDS: ziprasidone 20 mg/mL SDV IM (00:31)
== END 2024-07-11 01:15 | disposition home or self-care (01) ==
PROVIDERS: Family Medicine; Emergency Provider Emergency Medicine; PCP Family Medicine
DX: G31.84 Mild cognitive impairment of uncertain or unknown etiology (principal); R45.6 Violent behavior; E78.5 Hyperlipidemia, unspecified
CPT/HCPCS: 36415; 80053; 80307; 85025; 96372; 99284; J3486